=== PATIENT | female | born 1945 | race Asian ===

== ENCOUNTER 2016-11-22 04:08 | Emergency (ER) | payer OTHER ==
[~2016-11-22] VITALS: Ht 149.9 cm; Wt 71.7 kg
[2016-11-22 06:13] LABS: Urine RBC None Seen /hpf (0 - 4)
[2016-11-22 06:33] LABS: Urine Bilirubin Negative (Negative); Urine Blood Negative /uL (Negative); Urine Color Colorless (Yellow); Urine Glucose Normal (Normal); Urine Ketone Negative (Negative); Urine Nitrite Negative (Negative); Urine Urobilinogen Normal (Negative)
[2016-11-22 06:43] LABS: Basophils # (auto) 0 uL; Basophils % (auto) 0.3 % (0.0-2.0); Eosinophils # (auto) 0.1 uL; Eosinophils % (auto) 1.2 % (0.0-7.0); Hematocrit 42.3 % (36.0-46.0); Hemoglobin 13.6 g/dL (12.2-16.2); Lymphocytes # (auto) 2.6 uL; Lymphocytes % (auto) 35.2 % (10.0-50.0); Mean Corpuscular Hemoglobin 28.3 pg (28.0-32.0); Mean Corpuscular Hgb Conc. 32.1 g/dL (32.0-36.0); Mean Corpuscular Volume 88.1 fL (80.0-100.0); Mean Platelet Volume 7.5 fL (7.4-10.4); Monocytes # (auto) 0.4 uL; Monocytes % (auto) 5.6 % (0.0-12.0); Neutrophils # (auto) 4.3 uL; Neutrophils % (auto) 57.7 % (37.0-80.0); Platelet Count (auto) 240 10^3/uL (140-450); Red Cell Distribution Width 15.7 % (11.6-16.0); White Blood Cell 7.4 10^3/uL (4.4-10.8)
[2016-11-22 07:04] LABS: BUN/Creatinine Ratio 25.9; Bilirubin, Total 0.4 mg/dL (0.2-1.0); Calcium 9.1 mg/dL (8.5-10.1); Potassium 3.9 mmol/L (3.5-5.1); Total Protein 7.5 g/dL (6.4-8.2)
[2016-11-22 07:16] LABS: Partial Thromboplastin Time 38.7 sec (22.64-33.71)
[2016-11-22 07:19] LABS: B-Type Natriuretic Peptide 125.93 pg/mL (0-100); Temperature: 21.1 C (20.0-25.0)
[2016-11-22 07:41] LABS: INR 1.17 (0.9-1.15)
[2016-11-22] MEDS ORDERED: DABI150C PO (08:53)
[2016-11-22] MEDS ORDERED: SIMV10TA84 PO (08:53)
[2016-11-22] MEDS ORDERED: LOSA100T27 PO (08:53)
[2016-11-22] MEDS ORDERED: METF-314 PO (08:53)
[2016-11-22] MEDS ORDERED: ALBUTEROL SULF 2.5 MG/0.5ML(0.5%) NEB SOLN NEB ONE (09:30)
[2016-11-22 13:45] VITALS: BP 134/70
== END 2016-11-22 13:45 | disposition home or self-care (01) ==
LOC: ER 04:14
DX: I11.0 Hypertensive heart disease with heart failure (principal); I50.32 Chronic diastolic (congestive) heart failure; I48.2 Chronic atrial fibrillation; E11.65 Type 2 diabetes mellitus with hyperglycemia; D68.59 Other primary thrombophilia; J45.909 Unspecified asthma, uncomplicated; E78.5 Hyperlipidemia, unspecified; Z85.9 Personal history of malignant neoplasm, unspecified
CPT/HCPCS: 36415; 71010; 80053; 81001; 82962; 83880; 84443; 84484; 85025; 85379; 85610; 85730; 93005; 94640

== ENCOUNTER 2018-06-26 11:08 | Emergency (ER) | payer OTHER ==
[~2018-06-26] VITALS: Ht 149.9 cm; Wt 73.0 kg
[~2018-06-26 11:08] MED LIST: DABI150C PO; LOSA-49 PO; METF-371 PO; SIMV10TA84 PO
[2018-06-26] MEDS ORDERED: DILTIAZEM 125mg/125ml BAG KIT 100 ML IV ONE (11:23)
[2018-06-26] MEDS ORDERED: DILTIAZEM HCL 25 MG/5 ML VIAL IV ONE (11:30)
[2018-06-26] MEDS ORDERED: ASPirin 81 mg TAB PO ONE (11:30)
[2018-06-26 12:12] LABS: Basophils # (auto) 0 uL; Basophils % (auto) 0.5 % (0.0-2.0); Eosinophils # (auto) 0.1 uL; Eosinophils % (auto) 2.1 % (0.0-7.0); Hematocrit 44.2 % (36.0-46.0); Hemoglobin 14.9 g/dL (12.2-16.2); Lymphocytes # (auto) 1.5 uL; Lymphocytes % (auto) 32.5 % (10.0-50.0); Mean Corpuscular Hemoglobin 31.1 pg (28.0-32.0); Mean Corpuscular Hgb Conc. 33.7 g/dL (32.0-36.0); Mean Corpuscular Volume 92.5 fL (80.0-100.0); Monocytes # (auto) 0.4 uL; Neutrophils # (auto) 2.6 uL; Neutrophils % (auto) 55.9 % (37.0-80.0); Platelet Count (auto) 235 10^3/uL (140-450); Red Blood Cells 4.78 10^6/uL (4.0-5.20); Red Cell Distribution Width 14.9 % (11.8-14.3); White Blood Cell 4.7 10^3/uL (4.4-10.8)
[2018-06-26 12:25] LABS: INR 0.99 (0.9-1.15); Partial Thromboplastin Time 28.2 sec (23.78-33.04); Prothrombin Time 10.6 sec (9.27-12.13)
[2018-06-26 12:36] LABS: Alanine Aminotransferase 31 U/L (13-56); Albumin 3.4 g/dL (3.4-5.0); Alkaline Phosphatase 84 U/L (45-117); Anion Gap 8 (5-15); Aspartate Aminotransferase 18 U/L (15-37); Bilirubin, Total 0.4 mg/dL (0.2-1.0); Blood Urea Nitrogen 11 mg/dL (7-18); Calcium 8.4 mg/dL (8.5-10.1); Carbon Dioxide 23 mmol/L (21-32); Chloride 106 mmol/L (98-107); GFR African American 132 mL/min; GFR Non-African American 109 mL/min; Glucose 209 mg/dL (74-106); Magnesium 2.3 mg/dL (1.6-2.6); Potassium 3.8 mmol/L (3.5-5.1); Sodium 137 mmol/L (136-145); Total Protein 7.3 g/dL (6.4-8.2)
[2018-06-26 12:39] VITALS: BP 132/59
== END 2018-06-26 14:20 | disposition home or self-care (01) ==
LOC: ER 11:08
DX: I48.2 Chronic atrial fibrillation (principal); J45.909 Unspecified asthma, uncomplicated; E11.9 Type 2 diabetes mellitus without complications; E78.5 Hyperlipidemia, unspecified; I10 Essential (primary) hypertension; Z90.49 Acquired absence of other specified parts of digestive tract; Z98.890 Other specified postprocedural states
CPT/HCPCS: 36415; 71045; 80053; 83735; 83880; 84484; 85025; 85610; 85730; 93005; 94761

== ENCOUNTER 2019-09-17 13:33 | Emergency (ER) | payer OTHER ==
[~2019-09-17] VITALS: Ht 149.9 cm; Wt 76.2 kg
[~2019-09-17 13:33] MED LIST changes: -DABI150C PO; +DABI150C5 PO; +LOSA-39 PO; -LOSA-49 PO
[2019-09-17 14:35] LABS: Basophils # (auto) 0.1 uL; Basophils % (auto) 1.7 % (0.0-2.0); Eosinophils # (auto) 0.1 uL; Eosinophils % (auto) 1.6 % (0.0-7.0); Hemoglobin 15.3 g/dL (12.2-16.2); Lymphocytes # (auto) 2.2 uL; Lymphocytes % (auto) 33.6 % (10.0-50.0); Mean Corpuscular Hemoglobin 31.5 pg (28.0-32.0); Mean Corpuscular Hgb Conc. 34.8 g/dL (32.0-36.0); Mean Corpuscular Volume 90.6 fL (80.0-100.0); Monocytes # (auto) 0.5 uL; Monocytes % (auto) 6.9 % (0.0-12.0); Neutrophils # (auto) 3.7 uL; Neutrophils % (auto) 56.2 % (37.0-80.0); Nucleated Red Blood Cells % 0.1 %; Platelet Count (auto) 221 10^3/uL (140-450); Red Blood Cells 4.85 10^6/uL (4.0-5.20); Red Cell Distribution Width 15.9 % (11.8-14.3); White Blood Cell 6.6 10^3/uL (4.4-10.8)
[2019-09-17 14:56] LABS: Alanine Aminotransferase 43 U/L (13-56); Albumin 3.5 g/dL (3.4-5.0); Anion Gap 7 (5-15); Blood Urea Nitrogen 8 mg/dL (7-18); Calcium 8.7 mg/dL (8.5-10.1); Carbon Dioxide 28 mmol/L (21-32); Chloride 103 mmol/L (98-107); Glucose 97 mg/dL (74-106); Potassium 4.5 mmol/L (3.5-5.1); Sodium 138 mmol/L (136-145)
[2019-09-17 15:01] LABS: Alkaline Phosphatase 96 U/L (45-117); Aspartate Aminotransferase 35 U/L (15-37); BUN/Creatinine Ratio 13.3; Bilirubin, Total 0.3 mg/dL (0.2-1.0); GFR African American 126 mL/min; GFR Non-African American 104 mL/min; Total Protein 7.5 g/dL (6.4-8.2)
[2019-09-17] MEDS ORDERED: FUROSEMIDE 20 MG/2 ML VIAL IV ONE (16:00)
[2019-09-17] MEDS ORDERED: cefTRIAXone 1GM/50ML D5W 50 ML IV ONE (16:00)
[2019-09-17] MEDS ORDERED: AZITHROMYCIN 500MG/ 250ML 250 ML IV ONE (16:00)
[2019-09-17] MEDS ORDERED: diphenhdrAMINE HCL 50 MG/1 ML VL IV ONE (16:45)
[2019-09-17] MEDS ORDERED: ALBUTEROL SULF 2.5 MG/0.5ML(0.5%) NEB SOLN NEB ONE (18:00)
[2019-09-17] MEDS ORDERED: IPRATROPIUM BROM 0.5 MG/2.5ML INH SOL NEB ONE (18:00)
[2019-09-17 18:11] VITALS: BP 129/53
[2019-09-19] MEDS ORDERED: ALBU0.5N2 IN (08:27)
== END 2019-09-17 18:31 | disposition home or self-care (01) ==
LOC: ER 13:33
DX: I11.0 Hypertensive heart disease with heart failure (principal); I50.9 Heart failure, unspecified; J18.9 Pneumonia, unspecified organism; J45.909 Unspecified asthma, uncomplicated; E78.5 Hyperlipidemia, unspecified; I25.2 Old myocardial infarction
CPT/HCPCS: 36415; 71045; 80053; 83880; 84484; 85025; 93005; 94640; 96365; 96368; 96375; 99284; J0456; J0696; J1200; J1940; J7611; J7644

== ENCOUNTER 2024-03-26 11:21 | Observation (INO) | payer OTHER ==
[~2024-03-26] VITALS: Ht 149.9 cm; Wt 65.3 kg
[~2024-03-26 11:21] MED LIST changes: +ALBU0.5N2 IN; -LOSA-39 PO; +LOSA-535 PO; +SIMV10TA20 PO; -SIMV10TA84 PO
[2024-03-26 12:12] VITALS: PULSE 70; RESP 18; O2SAT 96
[2024-03-26 12:17] LABS: Basophils # (auto) 0 10 ^3/uL (0-0.2); Basophils % (auto) 0.4 % (0.0-2.0); Eosinophils # (auto) 0.1 10 ^3/uL (0-0.8); Eosinophils % (auto) 1.2 % (0.0-7.0); Hematocrit 49.3 % (36.0-46.0); Hemoglobin 16.6 g/dL (12.2-16.2); Lymphocytes # (auto) 1.9 10 ^3/uL (0.4-5.4); Lymphocytes % (auto) 26.4 % (10.0-50.0); Mean Corpuscular Hemoglobin 31.4 pg (28.0-32.0); Mean Corpuscular Hgb Conc. 33.6 g/dL (32.0-36.0); Mean Corpuscular Volume 93.3 fL (80.0-100.0); Monocytes # (auto) 0.6 10 ^3/uL (0-1.3); Monocytes % (auto) 9.1 % (0.0-12.0); Neutrophils # (auto) 4.4 10 ^3/uL (1.6-8.6); Neutrophils % (auto) 62.9 % (37.0-80.0); Nucleated Red Blood Cells % 0.1 %; Red Blood Cells 5.28 10^6/uL (4.0-5.20); Red Cell Distribution Width 15.3 % (11.8-14.3)
[2024-03-26 12:32] LABS: INR 1.05 (0.9-1.15); Partial Thromboplastin Time 29.1 SEC (24.5-34.5); Prothrombin Time 11.1 sec (9.3-11.8)
[2024-03-26 12:57] LABS: Alanine Aminotransferase 32 U/L (7-40); Alkaline Phosphatase 70 U/L (46-116); Anion Gap 11 (5-15); Aspartate Aminotransferase 29 U/L (13-40); BUN/Creatinine Ratio 11.9 (10.0-20.0); Blood Urea Nitrogen 7 mg/dL (9-23); Calcium 9.7 mg/dL (8.7-10.4); Carbon Dioxide 26 mmol/L (20-30); Chloride 96 mmol/L (98-107); Glucose 141 mg/dL (74-106); Magnesium 1.7 mg/dL (1.6-2.6); Potassium 3.6 mmol/L (3.5-5.1); Sodium 133 mmol/L (136-145)
[2024-03-26 12:58] LABS: Albumin 4.4 g/dL (3.2-4.8); Bilirubin, Total 0.6 mg/dL (0.2-1.0); Total Protein 7.5 g/dL (5.7-8.2)
[2024-03-26 14:00] LABS: Urine Bacteria None Seen /hpf (None Seen)
[2024-03-26 14:07] LABS: Urine Blood Negative /uL (Negative); Urine Budding Yeast OCCASIONAL /hpf (None Seen); Urine Clarity Clear (Clear); Urine Color Light-Yellow (Yellow); Urine Protein, UAD Negative (Negative); Urine Specific Gravity 1.018 (1.001-1.035); Urine Urobilinogen Normal (Negative); Urine WBC 2 /hpf (0 - 5)
[2024-03-26] MEDS ORDERED: ACETAMINOPHEN 325 MG TAB PO PRN (16:30)
[2024-03-26] MEDS ORDERED: hydrALAZINE HCL 20 MG/ML VL IV PRN (16:45)
[2024-03-26 19:35] VITALS: PULSE 72; RESP 21; O2SAT 94
[2024-03-26] MEDS: APIXABAN 5 MG TAB PO SCH (22:00)
[2024-03-26 22:51] VITALS: BP 169/78; PULSE 71; RESP 18; TEMP 97.9; O2SAT 94
[2024-03-27] VITALS (7 sets, daily range): BP systolic 130–156; BP diastolic 61–93; PULSE 56–66; RESP 16–20; TEMP 36.8; O2SAT 92–99
[2024-03-27] MEDS ORDERED: LATA0.008 EACHEYE (06:29)
[2024-03-27] MEDS ORDERED: DAPA1TAB4 PO (06:29)
[2024-03-27] MEDS ORDERED: AMIO200T13 PO (06:29)
[2024-03-27] MEDS ORDERED: APIX5TAB PO (06:29)
[2024-03-27] MEDS ORDERED: VENL-192 PO (06:29)
[2024-03-27] MEDS ORDERED: PANT40TA2 PO (06:29)
[2024-03-27] MEDS ORDERED: METO-158 PO (06:29)
[2024-03-27] MEDS ORDERED: BUPR-346 PO (06:29)
[2024-03-27] MEDS ORDERED: DORZ2SOL EACHEYE (06:29)
[2024-03-27] MEDS ORDERED: HYDR12.59 PO (06:29)
[2024-03-27 06:55] LABS: Basophils # (auto) 0 10 ^3/uL (0-0.2); Basophils % (auto) 0.4 % (0.0-2.0); Eosinophils # (auto) 0.1 10 ^3/uL (0-0.8); Hematocrit 47.3 % (36.0-46.0); Hemoglobin 15.7 g/dL (12.2-16.2); Lymphocytes # (auto) 2.4 10 ^3/uL (0.4-5.4); Lymphocytes % (auto) 40.3 % (10.0-50.0); Mean Corpuscular Hemoglobin 31.1 pg (28.0-32.0); Mean Corpuscular Hgb Conc. 33.2 g/dL (32.0-36.0); Mean Corpuscular Volume 93.7 fL (80.0-100.0); Monocytes # (auto) 0.5 10 ^3/uL (0-1.3); Monocytes % (auto) 9.1 % (0.0-12.0); Neutrophils # (auto) 2.8 10 ^3/uL (1.6-8.6); Neutrophils % (auto) 48.2 % (37.0-80.0); Nucleated Red Blood Cells % 0.2 %; Red Blood Cells 5.05 10^6/uL (4.0-5.20); Red Cell Distribution Width 15.1 % (11.8-14.3); White Blood Cell 5.9 10^3/uL (4.4-10.8)
[2024-03-27 07:13] LABS: Alanine Aminotransferase 28 U/L (7-40); Albumin 4.1 g/dL (3.2-4.8); Alkaline Phosphatase 68 U/L (46-116); Anion Gap 11 (5-15); Aspartate Aminotransferase 24 U/L (13-40); BUN/Creatinine Ratio 12.7 (10.0-20.0); Bilirubin, Total 0.4 mg/dL (0.2-1.0); Blood Urea Nitrogen 8 mg/dL (9-23); Calcium 9.5 mg/dL (8.5-10.1); Carbon Dioxide 27 mmol/L (20-30); Chloride 100 mmol/L (98-107); Cholesterol 142 mg/dL (< 200); Glucose 175 mg/dL (74-106); HDL Cholesterol 41 mg/dL (40-59); LDL Cholesterol 84 mg/dL (< 100); Potassium 2.8 mmol/L (3.5-5.1); Sodium 138 mmol/L (136-145); Total Protein 6.7 g/dL (5.7-8.2); Triglycerides 195 mg/dL (< 150)
[2024-03-27] MEDS: LOSARTAN POTASSIUM 50 MG TAB PO SCH (09:32)
[2024-03-27] MEDS ORDERED: LOSA-534 PO (16:28)
[2024-03-27] MEDS ORDERED: ATOR40TA52 PO (16:28)
== END 2024-03-27 18:30 | disposition home or self-care (01) ==
LOC: ER 11:21 → TELE 16:29 → TELE-WESTW 22:36
PROVIDERS: ADMIT Student in an Organized Health Care Education/Training Program; ATTEND Student in an Organized Health Care Education/Training Program
DX: G45.9 Transient cerebral ischemic attack, unspecified (principal); I48.20 Chronic atrial fibrillation, unspecified; I16.0 Hypertensive urgency; D68.59 Other primary thrombophilia; E78.5 Hyperlipidemia, unspecified; I11.0 Hypertensive heart disease with heart failure; I50.9 Heart failure, unspecified; E11.319 Type 2 diabetes mellitus with unspecified diabetic retinopathy without macular edema; J45.909 Unspecified asthma, uncomplicated; Z88.5 Allergy status to narcotic agent; Z88.8 Allergy status to other drugs, medicaments and biological substances
CPT/HCPCS: 36415; 70450; 70545; 70547; 70551; 71045; 80053; 80061; 81001; 83036; 83735; 83880; 84484; 85025; 85610; 85730; 93005; 93306; 99285; G0378

== ENCOUNTER 2024-05-04 08:46 | Observation (INO) | payer OTHER ==
[~2024-05-04] VITALS: Ht 149.9 cm; Wt 69.6 kg
[~2024-05-04 08:46] MED LIST changes: -ALBU0.5N2 IN; +APIX5TAB PO; +ATOR40TA52 PO; -DABI150C5 PO; +LOSA-534 PO; -LOSA-535 PO; -METF-371 PO; +METO-158 PO; -SIMV10TA20 PO; +VENL-192 PO
[2024-05-04 09:25] LABS: Basophils # (auto) 0 10 ^3/uL (0-0.2); Basophils % (auto) 0.2 % (0.0-2.0); Eosinophils # (auto) 0.1 10 ^3/uL (0-0.8); Eosinophils % (auto) 1.2 % (0.0-7.0); Hemoglobin 16.6 g/dL (12.2-16.2); Lymphocytes # (auto) 2.2 10 ^3/uL (0.4-5.4); Lymphocytes % (auto) 27.9 % (10.0-50.0); Mean Corpuscular Hemoglobin 31.5 pg (28.0-32.0); Mean Corpuscular Hgb Conc. 33.9 g/dL (32.0-36.0); Mean Corpuscular Volume 93.1 fL (80.0-100.0); Monocytes # (auto) 0.6 10 ^3/uL (0-1.3); Monocytes % (auto) 8.4 % (0.0-12.0); Neutrophils # (auto) 4.8 10 ^3/uL (1.6-8.6); Neutrophils % (auto) 62.3 % (37.0-80.0); Red Blood Cells 5.27 10^6/uL (4.0-5.20); Red Cell Distribution Width 14.6 % (11.8-14.3); White Blood Cell 7.8 10^3/uL (4.4-10.8)
[2024-05-04 09:46] LABS: Alanine Aminotransferase 44 U/L (7-40); Albumin 4.5 g/dL (3.2-4.8); Alkaline Phosphatase 75 U/L (46-116); Anion Gap 7 (5-15); Aspartate Aminotransferase 26 U/L (13-40); BUN/Creatinine Ratio 29.4 (10.0-20.0); Blood Urea Nitrogen 20 mg/dL (9-23); Calcium 9.3 mg/dL (8.5-10.1); Carbon Dioxide 23 mmol/L (20-30); Chloride 110 mmol/L (98-107); Glucose 93 mg/dL (74-106); Potassium 3.8 mmol/L (3.5-5.1); Sodium 140 mmol/L (136-145)
[2024-05-04 09:47] LABS: Bilirubin, Total 0.4 mg/dL (0.2-1.0); Total Protein 7.1 g/dL (5.7-8.2)
[2024-05-04 11:28] LABS: Urine Bacteria None Seen /hpf (None Seen)
[2024-05-04 11:42] LABS: Urine Blood Negative /uL (Negative); Urine Budding Yeast OCCASIONAL /hpf (None Seen); Urine Clarity Turbid (Clear); Urine Color Yellow (Yellow); Urine Hyaline Cast FEW /lpf (0 - 2); Urine Mucus FEW (None Seen); Urine Protein, UAD 1+ (Negative); Urine Specific Gravity 1.035 (1.001-1.035); Urine Urobilinogen Normal (Negative); Urine WBC 18 /hpf (0 - 5)
[2024-05-04] MEDS ORDERED: MORPHINE SULFATE INJ 2 MG/ml SYRG IV PRN (15:30)
[2024-05-04] MEDS ORDERED: NITROGLYCERIN 0.4 MG SL TAB SL PRN (15:30)
[2024-05-04 15:45] VITALS: PULSE 88; RESP 16; O2SAT 96
[2024-05-04 17:00] VITALS: BP 121/45; PULSE 55; RESP 18; TEMP 97.6; O2SAT 98
[2024-05-04] MEDS: cefTRIAXone 1GM/50ML D5W 50 ML IV ONE (19:45)
[2024-05-04 21:00] VITALS: BP_SYST 105; BP_SYST 106; BP_DIAS 41; BP_DIAS 51; PULSE 55; PULSE 96; RESP 17; RESP 19; TEMP 97.9; TEMP 98.8; O2SAT 94; O2SAT 97
[2024-05-05] VITALS (8 sets, daily range): BP systolic 108–142; BP diastolic 46–77; PULSE 45–100; RESP 15–20; TEMP 97–97.8; O2SAT 95–99
[2024-05-05] MEDS ORDERED: LORazepam 0.5 MG TAB PO PRN (00:15)
[2024-05-05] MEDS: APIXABAN 5 MG TAB PO SCH (00:31)
[2024-05-05] MEDS ORDERED: VENL1TAB99 PO (04:39)
[2024-05-05] MEDS ORDERED: PANT40TA2 PO (04:39)
[2024-05-05] MEDS ORDERED: AMIO200T33 PO (04:39)
[2024-05-05] MEDS ORDERED: DAPA1TAB4 PO (04:39)
[2024-05-05] MEDS ORDERED: METF-371 PO (04:39)
[2024-05-05] MEDS ORDERED: LATA0.008 EACHEYE (04:39)
[2024-05-05] MEDS ORDERED: SEMA2INJ3 SC (04:39)
[2024-05-05] MEDS ORDERED: LOSA-534 PO (04:39)
[2024-05-05] MEDS ORDERED: BUPR-346 PO (04:39)
[2024-05-05] MEDS ORDERED: HYDR12.59 PO (04:39)
[2024-05-05] MEDS ORDERED: ATOR10TA PO (04:39)
[2024-05-05] MEDS ORDERED: GADOTERATE MEG 10 MMOL/20ml INJ (0.5MMOL/ml) IV ONE (07:31)
[2024-05-05] MEDS: LOSARTAN POTASSIUM 50 MG TAB PO SCH (10:09)
[2024-05-05] MEDS: ATORVASTATIN 20 MG TAB PO SCH (10:10)
[2024-05-05] MEDS: VENLAFAXINE HCL 37.5mg XR cap PO SCH (10:10)
[2024-05-05] MEDS ORDERED: ASPI-543 PO (12:08)
[2024-05-05] MEDS ORDERED: DEXTROSE (50%) 50ML SYRG IV PRN (17:30)
[2024-05-05] MEDS: LATANOPROST 0.005 % OPTH(EYE) SOL 2.5ML EACHEYE SCH (22:00)
[2024-05-05] MEDS: ACCU-CHEK COMFORT CURVE STRIP VI SCH (22:15)
[2024-05-05] MEDS: InsuLIN REG 1unit/0.01ml Soln (100units/ml) SC SCH (22:16)
[2024-05-06 05:00] VITALS: BP 123/68; PULSE 67; RESP 18; TEMP 97.7; O2SAT 97
[2024-05-06 06:30] LABS: Basophils # (auto) 0 10 ^3/uL (0-0.2); Basophils % (auto) 0.3 % (0.0-2.0); Eosinophils # (auto) 0.1 10 ^3/uL (0-0.8); Eosinophils % (auto) 1.5 % (0.0-7.0); Hemoglobin 16.1 g/dL (12.2-16.2); Lymphocytes # (auto) 2.4 10 ^3/uL (0.4-5.4); Lymphocytes % (auto) 49.6 % (10.0-50.0); Mean Corpuscular Hemoglobin 31.9 pg (28.0-32.0); Mean Corpuscular Hgb Conc. 34.2 g/dL (32.0-36.0); Mean Corpuscular Volume 93.3 fL (80.0-100.0); Monocytes # (auto) 0.4 10 ^3/uL (0-1.3); Monocytes % (auto) 8.6 % (0.0-12.0); Neutrophils # (auto) 1.9 10 ^3/uL (1.6-8.6); Nucleated Red Blood Cells % 0.1 %; Red Blood Cells 5.04 10^6/uL (4.0-5.20); Red Cell Distribution Width 14.8 % (11.8-14.3); White Blood Cell 4.9 10^3/uL (4.4-10.8)
[2024-05-06 07:08] LABS: Alanine Aminotransferase 37 U/L (7-40); Albumin 3.8 g/dL (3.2-4.8); Alkaline Phosphatase 58 U/L (46-116); Anion Gap 7 (5-15); Aspartate Aminotransferase 26 U/L (13-40); BUN/Creatinine Ratio 19.1 (10.0-20.0); Blood Urea Nitrogen 9 mg/dL (9-23); Carbon Dioxide 25 mmol/L (20-30); Chloride 108 mmol/L (98-107); Glucose 111 mg/dL (74-106); Potassium 3.2 mmol/L (3.5-5.1); Sodium 140 mmol/L (136-145)
[2024-05-06 07:09] LABS: Bilirubin, Total 0.5 mg/dL (0.2-1.0); Total Protein 6.1 g/dL (5.7-8.2)
[2024-05-06 09:00] VITALS: BP 152/97; PULSE 88; RESP 16; TEMP 97.9; O2SAT 97
[2024-05-06] MEDS: hydroCHLOROthiazide 25 MG TAB PO SCH (09:43)
[2024-05-06] MEDS: buPROPion HCL 100 MG TAB PO SCH (09:44)
[2024-05-06] MEDS: AMIODARONE HCL 200 MG TAB PO SCH (09:44)
[2024-05-06] MEDS: PANTOPRAZOLE 40 MG TAB PO SCH (09:44)
[2024-05-06] MEDS: VENLAFAXINE HCL 37.5mg XR cap PO SCH (09:53)
[2024-05-06 13:00] VITALS: BP 128/70; PULSE 69; RESP 16; TEMP 97.8; O2SAT 99
[2024-05-06 13:23] VITALS: BP 152/91; TEMP 36.6
[2024-05-06] MEDS ORDERED: ATORVASTATIN 20 MG TAB PO SCH (18:00)
== END 2024-05-06 14:55 | disposition home or self-care (01) ==
LOC: ER 08:46 → OVERFLOW 15:22 → EAST 16:31
PROVIDERS: ADMIT Student in an Organized Health Care Education/Training Program; ATTEND Student in an Organized Health Care Education/Training Program
DX: R20.0 Anesthesia of skin (principal); R29.810 Facial weakness; I48.91 Unspecified atrial fibrillation; J45.909 Unspecified asthma, uncomplicated; I11.0 Hypertensive heart disease with heart failure; I50.9 Heart failure, unspecified; E11.9 Type 2 diabetes mellitus without complications; G95.89 Other specified diseases of spinal cord; M25.78 Osteophyte, vertebrae; N39.0 Urinary tract infection, site not specified; I25.2 Old myocardial infarction; Z79.899 Other long term (current) drug therapy; Z85.3 Personal history of malignant neoplasm of breast; Z90.13 Acquired absence of bilateral breasts and nipples; Z79.01 Long term (current) use of anticoagulants
CPT/HCPCS: 36415; 70450; 70551; 70553; 72142; 72147; 80053; 81001; 82962; 85025; 93005; 96365; 96372; 99284; A9575; G0378; J0696; J1815; J7030

== ENCOUNTER 2025-01-12 22:32 | Inpatient (IN) | payer OTHER ==
[~2025-01-12] VITALS: Ht 142.2 cm; Wt 73.1 kg
[~2025-01-12 22:32] MED LIST changes: +AMIO200T33 PO; +ASPI-543 PO; +BUPR-346 PO; +DAPA1TAB4 PO; +HYDR12.59 PO; +LATA0.008 EACHEYE; +METF-371 PO; +PANT40TA2 PO; +SEMA2INJ3 SC; -VENL-192 PO; +VENL1TAB99 PO
--- NOTE | 2025-01-12 23:01 | ED.PDOC ---
HPI Comments 79 year old female came to ER due to chest pains. Patient has history of hypertension, diabetes, dyslipidemia, chf and Afib. States few hours ago, she has been having substernal chest pains, pressure, radiating to the back, associated with dizziness, shortness of breath, nausea and multiple episodes of vomiting and diarrhea. Blood pressure upon arrival was 103/56 mmHg. Chief Complaint: Chest Pain Time Seen by MD: 23:00 Primary Care Provider: Unknown Reviewed Notes: Nurses Notes Allergies: Coded Allergies: Iodine (Verified Allergy, Severe, 09/17/19) Azithromycin (Verified Allergy, Mild, 09/17/19) ITCHING Metoprolol (Verified Allergy, Mild, 11/22/16) PATIENT REPORTS THAT SHE IS ALLERGIC TO IV METOPROLOL. CAUSES ITCHING. BUT IS ABLE TO TOLERATE PO METOPROLOL WITH NO ADVERSE REACTIONS. Morphine (Verified Allergy, Unknown, 09/17/19) Neomycin (Verified Allergy, Unknown, 09/17/19) Home Meds Active Scripts Atorvastatin Calcium (ATORVASTATIN CALCIUM) 40 Mg Tab, 40 MG PO DAILY for 30 Days, #30 TAB 0 Refills Prov:MIKE HOLM DO 03/27/24 Losartan Potassium (Losartan Potassium) 50 Mg Tab, 50 MG PO DAILY for 30 Days, #30 TAB 0 Refills Prov:MIKE HOLM DO 03/27/24 Reported Medications Aspirin (Aspir-Low) 81 Mg Tab, 81 MG PO DAILY for 30 Days, MG 05/05/24 Semaglutide (Ozempic) 2 Mg/3 Ml Inj, 0.5 MG SC QWEEKLY, INJ 05/05/24 Latanoprost (LATANOPROST) 0.005 % Cathy, 1 DROP EACHEYE BID, #2.5 ML 6 Refills 05/05/24 Venlafaxine Hydrochloride (Venlafaxine Hcl) 75 Mg Tab, 75 MG PO DAILY, TAB 05/05/24 Dapagliflozin Propanediol (Farxiga) 10 Mg Tab, 10 MG PO DAILY, TAB 05/05/24 Bupropion Hcl (Bupropion Hcl) 100 Mg Tab, 100 MG PO DAILY for 30 Days, MG 05/05/24 Amiodarone Hcl (Amiodarone Hcl) 200 Mg Tab, 200 MG PO DAILY for 30 Days 05/05/24 Metformin Hydrochloride (Metformin Hcl) 850 Mg Tab, 850 MG PO BID for 30 Days, MG 05/05/24 Pantoprazole Sodium Sesquihydr (Protonix) 40 Mg Tab, 40 MG PO DAILY, #30 TAB 05/05/24 Hydrochlorothiazide (Hydrochlorothiazide) 12.5 Mg Cap, 12.5 MG PO DAILY for 30 Days, MG 05/05/24 Metoprolol Tartrate (Metoprolol Tartrate) 50 Mg Tab, 50 MG PO BID for 30 Days, MG 03/27/24 Apixaban Base (ELIQUIS) 5 Mg Tab, 5 MG PO BID, TAB 03/27/24 Information Source: Patient Mode of Arrival: Ambulatory Severity: Moderate Timing: Hours Duration: Since onset Prehospital treatment: None Location: Substernal Radiation: Back Quality: Pressure Onset: With Light Exertion Cardiac Risk Factors: HTN, Diabetes History of: Similar pain in past Associated Signs and Symptoms: SOB, Diaphoresis, Abdominal Pain, N/V, Back Pain Past Medical History PAST MEDICAL HISTORY: AFIB, Asthma, Cancer, CHF, DM, High Lipids, HTN, NM Surgical History: Cholecystectomy, INSURANCE COMPLIANCE ANALYST History: No Pertinent INSURANCE COMPLIANCE ANALYST History Family History Family History: No family hx of HTN, Family hx of Cancer Social History Smoker: Non-Smoker Alcohol: Denies ETOH Use Drugs: Denies Drug Use Lives In: Home Constitutional: denies: chills, diaphoresis, fatigue, fever, malaise, sweats, weakness, others EENTM: denies: blurred vision, double vision, ear bleeding, ear discharge, ear drainage, ear pain, ear ringing, eye pain, eye redness, hearing loss, mouth pain, mouth swelling, nasal discharge, nose bleeding, nose congestion, nose pain, photophobia, tearing, throat pain, throat swelling, voice changes, others Respiratory: reports: SOB at rest, shortness of breath; denies: cough, hemoptysis, orthopnea, SOB with excertion, stridor, wheezing, others Cardiovascular: reports: chest pain, dizzy spells; denies: diaphoresis, Dyspnea on exertion, edema, irregular heart beat, left arm pain, lightheadedness, palpi tations, PND, syncope, others Gastrointestinal: reports: diarrhea, nausea, vomiting; denies: abdomen distended, abdominal pain, blood streaked bowels, constipated, dysphagia, difficulty swallowing, hematemesis, melena, poor appetite, poor fluid intake, rectal bleeding, rectal pain, others Genitourinary: denies: abnormal vagina bleeding, burning, dyspareunia, dysuria, flank pain, frequency, hematuria, incontinence, pain, , vagina discharge, urgency, others Neurological: denies: dizziness, fainting, headache, left sided numbness, left sided weakness, numbness, paresthesia, pre-existing deficit, right sided numbness, right sided weakness, seizure, speech problems, tingling, tremors, weakness, others Musculoskeletal: reports: back pain; denies: gout, joint pain, joint swelling, muscle pain, muscle stiffness, neck pain, others Integumetry: denies: bruises, change in color, change in hair/nails, dryness, laceration, lesions, lumps, rash, wounds, others Allergic/Immunocompromised: denies: Difficulty Healing, Frequent Infections, Hives, Itching, others Hematologic/Lymphatic: denies: anemia, blood clots, easy bleeding, easy bruising, swollen glands, others Endocrine: denies: excessive hunger, excessive sweating, excessive thirst, excessive urination, flushing, intolerance to cold, intolerance to heat, unexplained weight gain, unexplained weight loss, others Psychiatric: denies: anxiety, bipolar disorder, depression, hopeless, panic disorder, schizophrenia, sleepless, suicidal, others Physical Exam General Appearance: No Apparent Distress, Normal HEENT: Normal ENT Inspection, Pharynx Normal, TMs Normal Neck: Full Range of Motion, Non-Tender, Normal, Normal Inspection Respiratory: Chest Non-Tender, Lungs Clear, No Accessory Muscle Use, No Respiratory Distress, Normal Breath Sounds Cardiovascular: No Edema, No JVD, No Murmur, No Gallop, Normal Peripheral Pulses, Regular Rate/Rhythm Breast Exam: Deferred Gastrointestinal: No Organomegaly, Non Tender, No Pulsatile Mass, Normal Bowel Sounds, Soft Genitalia: Deferred Pelvic: Deferred Rectal: Deferred Extremities: No calf tenderness, Normal capillary refill, Normal inspection, Normal range of motion, Non-tender, No pedal edema Musculoskeletal : Apperance: Normal Neurologic: Alert, chief digital media officer II-XII nml as Tested, No Motor Deficits, Normal Affect, Normal Mood, No Sensory Deficits Cerebellar Function: Normal Reflexes: Normal Skin: Dry, Normal Color, Warm Lymphatic: No Adenopathy Was a procedure done? Was a procedure done?: No CP Differential Dx Differential Diagnosis: A-fib, Angina, Anxiety / Panic Attack Differential Diagnosis: Angina, Chest Wall Pain, Costochondritis, Esophageal reflux/spasm, Gastritis, Myocardial Infarction, Pneumonia X-Ray, Labs, Meds, VS Vital Signs Date Time Temp Pulse Resp B/P (MAP) Pulse Ox O2 Delivery O2 Flow Rate FiO2 01/13/25 01:42 85 01/13/25 01:08 97.8 01/13/25 00:11 85 25 91 Room Air* 0 21 01/13/25 00:11 97.8 85 25 102/48 (66) 91 97.8 01/13/25 00:08 97.8 01/12/25 23:43 83 01/12/25 22:54 97.6 85 18 103/56 (72) 98 97.6 01/12/25 22:38 85 Lab Test 01/13/25 03:30 01/13/25 01:20 01/12/25 23:27 01/12/25 22:40 Range/Units Lactic Acid Level 1.5 4.4 *H 0.4-2.0 mmol/L Troponin I High Sensitivity 6 5 </=34 ng/L White Blood Count 12.7 H 4.4-10.8 10^3/uL Red Blood Count 5.61 H 4.0-5.20 10^6/uL Hemoglobin 17.5 H 12.2-16.2 g/dL Hematocrit 52.7 H 36.0-46.0 % Mean Corpuscular Volume 93.9 80.0-100.0 fL Mean Corpuscular Hemoglobin 31.3 28.0-32.0 pg Mean Corpuscular Hemoglobin Concent 33.3 32.0-36.0 g/dL Red Cell Distribution Width 15.9 H 11.8-14.3 % Platelet Count 205 140-450 10^3/uL Mean Platelet Volume 7.8 6.9-10.8 fL Neutrophils (%) (Auto) 89.1 H 37.0-80.0 % Lymphocytes (%) (Auto) 7.0 L 10.0-50.0 % Monocytes (%) (Auto) 3.4 0.0-12.0 % Eosinophils (%) (Auto) 0.3 0.0-7.0 % Basophils (%) (Auto) 0.2 0.0-2.0 % Neutrophils # (Auto) 11.4 H 1.6-8.6 10 ^3/uL Lymphocytes # (Auto) 0.9 0.4-5.4 10 ^3/uL Monocytes # (Auto) 0.4 0-1.3 10 ^3/uL Eosinophils # (Auto) 0 0-0.8 10 ^3/uL Basophils # (Auto) 0 0-0.2 10 ^3/uL Nucleated Red Blood Cells 0.0 % Sodium Level 133 L 136-145 mmol/L Potassium Level 4.6 3.5-5.1 mmol/L Chloride Level 100 98-107 mmol/L Carbon Dioxide Level 19 L 20-31 mmol/L Anion Gap 14 5-15 Blood Urea Nitrogen 17 9-23 mg/dL Creatinine 1.18 H 0.550-1.02 mg/dL Glomerular Filtration Rate Calc 48 >90 mL/min BUN/Creatinine Ratio 14.4 10.0-20.0 Serum Glucose 267 H 74-106 mg/dL Calcium Level 10.3 8.7-10.4 mg/dL Current Medications Medications (Trade) Dose Ordered Sig/Cullen Route Start Time Stop Time Status Last Admin Sodium Chloride 1,000 ml @ 1,000 mls/hr Q1H ONCE IV 01/12/25 23:00 01/12/25 23:59 DC 01/13/25 00:07 Acetaminophen (Tylenol Tablet) 650 mg ONCE ONCE PO 01/12/25 23:00 01/12/25 23:01 DC 01/13/25 00:08 Ondansetron HCl (Zofran) 4 mg ONCE ONCE IV 01/13/25 00:45 01/13/25 00:46 DC 01/13/25 00:58 Famotidine (Pepcid Injection) 20 mg ONCE ONCE IV 01/13/25 00:45 01/13/25 00:46 DC 01/13/25 00:57 Loperamide HCl (Imodium Capsule) 4 mg ONCE ONCE PO 01/13/25 01:30 01/13/25 01:31 DC 01/13/25 01:30 Sodium Chloride 2,000 ml @ 1,000 mls/hr Q2H ONCE IV 01/13/25 02:30 01/13/25 04:29 DC 01/13/25 02:30 Piperacillin Sod/ Tazobactam Sod 100 ml @ 100 mls/hr ONCE ONCE IV 01/13/25 02:30 01/13/25 03:29 DC 01/13/25 03:07 CHEST RADIOGRAPH Indication: chest pain Technique: Single frontal view of the chest was obtained COMPARISON: XY CHEST XRAY 1 VIEW on DOS: 03/26/24, CHEST PORTABLE on DOS: 09/17/19 FINDINGS: Lines and Tubes: None Lungs: Clear Pleura: No effusion. No pneumothorax. Cardiomediastinal contours: Unremarkable. Atherosclerotic vascular calcifications noted. Bones: Unremarkable IMPRESSION: 1. No acute disease. Exam: CT CT AB PEL WO CON-NO ORAL OR IV History: abdominal pain Comparison Study: None available at time of dictation. Technique: Multidetector spiral CT of the abdomen was performed from lung bases to iliac crest. Imaging was performed without IV contrast. Axial, coronal and sagittal multiplanar reformats were obtained from the axial data set by the technologist. Radiation Dose : CT Dose: CTDI volume is 16.44 mGy. Dose-length product is 948.55 mGy*cm Findings: Evaluation of solid organs is limited due to lack of intravenous contrast use. Lung Bases: Several pulmonary nodules, for example: * 0.5 cm pleural-based posterolateral right lower lobe (3:4); * 0.5 cm posteromedial right lower lobe (3:23); * 1.2 cm pleural-based lateral right lower lobe (3:29) Normal heart size. No pleural or pericardial effusion. Liver: The liver is enlarged with diffuse hepatic steatosis. No focal lesions. Gallbladder and Biliary Tree: The gallbladder is surgically absent. There is no evidence of intrahepatic biliary ductal dilatation. Spleen: Unremarkable Pancreas: The pancreas is grossly normal in appearance. Adrenal Glands: Unremarkable Kidneys: Kidneys are grossly normal without calculi or hydronephrosis. Visualized Bowel: The stomach is grossly normal in appearance. Minimally distended fluid-filled segments of small bowel throughout the abdomen without evidence of bowel obstruction. The appendix is normal in appearance. Ascites: Absent Lymphadenopathy: No mesenteric, retroperitoneal or periportal lymphadenopathy. Abdominal Wall and Mesentery: Unremarkable. Vasculature: The visualized abdominal aorta is normal in size and caliber. Atherosclerotic vascular calcifications are present within the coronary arterial vasculature, aorta and major branching vessels. Evaluation of abdominal and pelvic vessels is limited due to lack of intravenous contrast. Musculoskeletal: No aggressive focal bony lesions, acute fractures or dislocation. Multilevel degenerative change of the thoracic and lumbar spine includes diffuse idiopathic skeletal hyperostosis as well as severe disc height loss with adjacent endplate sclerosis and corresponding anterior osteophytosis at all levels within the lumbar spine. IMPRESSION: 1. No acute abdominal finding.Hepatomegaly 2. And hepatic steatosis. 3. Several right lower lobe pulmonary nodules of uncertain etiology and/or significance. Recommend comparison with prior exams if available and follow-up evaluation. Time of 1ST Reevaluation: 22:55 Reevaluation 1ST: Unchanged Patient Education/Counseling: Diagnosis, Treatment Family Education/Counseling: No Family Present Critical Care Note Critical Care Time?: Yes (35 min-critical care time only) Critical care comment: acute chest pains Stability Stability form required: No Heart Score Heart Score: Heart Score Response (Comments) Value History Moderate Suspicious 1 EKG Repolarization Disturb 1 Age >65 2 Risk Factors >3 or Hx ASHD 2 Troponin Normal limit 0 Total 6 I personally scribed for PASQUALE SOW MD ([facility]) on 01/12/25 at 23:00. Electronically submitted by Ney Torrez ([employer]). I personally scribed for PASQUALE SOW MD ([facility] on 01/13/25 at 00:46. Electronically submitted by Ney Torrez ([employer]). I personally scribed for PASQUALE SOW MD ([facility]) on 01/13/25 at 05:09. Electronically submitted by Ney Torrez ([facility] PASQUALE SOW MD Jan 12, 2025 23:00
[2025-01-12 23:09] LABS: Basophils # (auto) 0 10 ^3/uL (0-0.2); Eosinophils # (auto) 0 10 ^3/uL (0-0.8); Hemoglobin 17.5 g/dL (12.2-16.2)
[2025-01-12 23:11] LABS: Basophils % (auto) 0.2 % (0.0-2.0); Eosinophils % (auto) 0.3 % (0.0-7.0); Hematocrit 52.7 % (36.0-46.0); Lymphocytes # (auto) 0.9 10 ^3/uL (0.4-5.4); Mean Corpuscular Hemoglobin 31.3 pg (28.0-32.0); Mean Corpuscular Hgb Conc. 33.3 g/dL (32.0-36.0); Mean Corpuscular Volume 93.9 fL (80.0-100.0); Monocytes # (auto) 0.4 10 ^3/uL (0-1.3); Monocytes % (auto) 3.4 % (0.0-12.0); Neutrophils # (auto) 11.4 10 ^3/uL (1.6-8.6); Neutrophils % (auto) 89.1 % (37.0-80.0); Platelet Count (auto) 205 10^3/uL (140-450); Red Blood Cells 5.61 10^6/uL (4.0-5.20); Red Cell Distribution Width 15.9 % (11.8-14.3); White Blood Cell 12.7 10^3/uL (4.4-10.8)
--- NOTE | 2025-01-12 23:14 | ECG ---
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
[2025-01-12 23:15] LABS: Chloride 100 mmol/L (98-107); Potassium 4.6 mmol/L (3.5-5.1)
[2025-01-12 23:16] LABS: Anion Gap 14 (5-15)
[2025-01-12 23:17] LABS: Calcium 10.3 mg/dL (8.7-10.4)
[2025-01-12 23:19] LABS: Carbon Dioxide 19 mmol/L (20-31); Sodium 133 mmol/L (136-145)
[2025-01-12 23:21] LABS: BUN/Creatinine Ratio 14.4 (10.0-20.0); Blood Urea Nitrogen 17 mg/dL (9-23)
[2025-01-12 23:22] LABS: Glucose 267 mg/dL (74-106)
--- NOTE | 2025-01-12 23:26 | DVH ---
CHEST RADIOGRAPH Indication: chest pain Technique: Single frontal view of the chest was obtained COMPARISON: XY CHEST XRAY 1 VIEW on DOS: 03/26/24, CHEST PORTABLE on DOS: 09/17/19 FINDINGS: Lines and Tubes: None Lungs: Clear Pleura: No effusion. No pneumothorax. Cardiomediastinal contours: Unremarkable. Atherosclerotic vascular calcifications noted. Bones: Unremarkable IMPRESSION: 1. No acute disease.
[2025-01-13] MEDS: SODIUM CHLORIDE 0.9% 1,000 ML IV ONE (00:07)
[2025-01-13] MEDS: ACETAMINOPHEN 325 MG TAB PO ONE ×2 (00:08→13:31)
[2025-01-13 00:11] VITALS: PULSE 85; RESP 25; O2SAT 91
[2025-01-13] MEDS: FAMOTIDINE (10MG/ML) 2ML VL IV ONE (00:57)
[2025-01-13] MEDS: ONDANSETRON HCL 4 MG/2 ML VIAL IV ONE (00:58)
[2025-01-13] MEDS: LOPERAMIDE HCL 2 MG CAP/TAB PO ONE (01:30)
[2025-01-13 02:21] LABS: Lactic Acid w/Reflex 4.4 mmol/L (0.4-2.0)
[2025-01-13] MEDS ORDERED: VANCOMYCIN PER PHARMACY 0 MG IV SCH ×3 (02:30→18:45)
[2025-01-13] MEDS: SODIUM CHLORIDE 0.9% 2,000 ML IV ONE (02:30)
[2025-01-13] MEDS: PIPERACILLIN-TAZO 4.5GM 100 ML IV ONE (03:07)
--- NOTE | 2025-01-13 03:13 | DVH ---
Exam: CT CT AB PEL WO CON-NO ORAL OR IV History: abdominal pain Comparison Study: None available at time of dictation. Technique: Multidetector spiral CT of the abdomen was performed from lung bases to iliac crest. Imagi ng was performed without IV contrast. Axial, coronal and sagittal multiplanar reformats were obtained from the axial data set by the technologist. Radiation Dose : CT Dose: CTDI volume is 16.44 mGy. Dose-length product is 948.55 mGy*cm Findings: Evaluation of solid organs is limited due to lack of intravenous contrast use. Lung Bases: Several pulmonary nodules, for example: * 0.5 cm pleural-based posterolateral right lower lobe (3:4); * 0.5 cm posteromedial right lower lobe (3:23); * 1.2 cm pleural-based lateral right lower lobe (3:29) Normal heart size. No pleural or pericardial effusion. Liver: The liver is enlarged with diffuse hepatic steatosis. No focal lesions. Gallbladder and Biliary Tree: The gallbladder is surgically absent. There is no evidence of intrahep atic biliary ductal dilatation. Spleen: Unremarkable Pancreas: The pancreas is grossly normal in appearance. Adrenal Glands: Unremarkable Kidneys: Kidneys are grossly normal without calculi or hydronephrosis. Visualized Bowel: The stomach is grossly normal in appearance. Minimally distended fluid-filled segme nts of small bowel throughout the abdomen without evidence of bowel obstruction. The appendix is norm al in appearance. Ascites: Absent Lymphadenopathy: No mesenteric, retroperitoneal or periportal lymphadenopathy. Abdominal Wall and Mesentery: Unremarkable. Vasculature: The visualized abdominal aorta is normal in size and caliber. Atherosclerotic vascular c alcifications are present within the coronary arterial vasculature, aorta and major branching vessels . Evaluation of abdominal and pelvic vessels is limited due to lack of intravenous contrast. Musculoskeletal: No aggressive focal bony lesions, acute fractures or dislocation. Multilevel degener ative change of the thoracic and lumbar spine includes diffuse idiopathic skeletal hyperostosis as we ll as severe disc height loss with adjacent endplate sclerosis and corresponding anterior osteophytos is at all levels within the lumbar spine. IMPRESSION: 1. No acute abdominal finding.Hepatomegaly 2. And hepatic steatosis. 3. Several right lower lobe pulmonary nodules of uncertain etiology and/or significance. Recommend c omparison with prior exams if available and follow-up evaluation. Radiation optimization: All CT scans at this facility use at least one of these dose optimization geoff hniques: automated exposure control mA and/or kV adjustment per patient size (includes targeted exam s where dose is matched to clinical indication) or iterative reconstruction.
[2025-01-13] MEDS: VANCOMYCIN 1GM/250ML KIT 250 ML IV ONE (05:45)
--- NOTE | 2025-01-13 06:45 | ECG ---
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
--- NOTE | 2025-01-13 06:46 | ECG ---
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
[2025-01-13 08:01] VITALS: PULSE 91; RESP 17; O2SAT 96
[2025-01-13 08:56] LABS: Urine Bacteria None Seen /hpf (None Seen)
[2025-01-13 10:00] LABS: Urine Blood Negative /uL (Negative); Urine Budding Yeast OCCASIONAL /hpf (None Seen); Urine Clarity Clear (Clear); Urine Color Light-Yellow (Yellow); Urine Protein, UAD TRACE (Negative); Urine Specific Gravity 1.026 (1.001-1.035); Urine Squamous Epithelial Cell FEW /hpf (<5); Urine Urobilinogen Normal (Negative); Urine WBC 5 /HPF (0-5)
[2025-01-13] MEDS ORDERED: InsuLIN REG 1unit/0.01ml Soln (100units/ml) SC ONE (10:45)
[2025-01-13] MEDS ORDERED: ACCU-CHEK COMFORT CURVE STRIP VI ONE (10:45)
[2025-01-13] MEDS: DEXTROSE (50%) 50ML SYRG IV ONE (11:06)
[2025-01-13] MEDS: LACTATED RINGER'S 1,000 ML IV ONE (11:13)
[2025-01-13] MEDS ORDERED: DEXTROSE (50%) 50ML SYRG IV PRN (11:15)
[2025-01-13] MEDS: InsuLIN REG 1unit/0.01ml Soln (100units/ml) SC SCH ×2 (11:30→23:28)
[2025-01-13] MEDS: ACCU-CHEK COMFORT CURVE STRIP VI SCH (11:30)
[2025-01-13] MEDS: LOPERAMIDE HCL 2 MG CAP/TAB PO PRN (13:31)
[2025-01-13] MEDS: PIPERACILLIN-TAZOB 3.375GM 100 ML IV SCH ×2 (14:00→23:30)
[2025-01-13 14:39] LABS: Rapid Influenza A Negative (Negative); Rapid Influenza B Negative (Negative)
[2025-01-13 14:40] LABS: COVID19 ANTIGEN SOFIA FIA NEGATIVE (NEGATIVE)
[2025-01-13 15:08] LABS: Basophils # (auto) 0 10 ^3/uL (0-0.2); Eosinophils # (auto) 0 10 ^3/uL (0-0.8); Eosinophils % (auto) 0.1 % (0.0-7.0); Hematocrit 43.9 % (36.0-46.0); Hemoglobin 14.1 g/dL (12.2-16.2); Lymphocytes # (auto) 0.9 10 ^3/uL (0.4-5.4); Lymphocytes % (auto) 12.1 % (10.0-50.0); Mean Corpuscular Hemoglobin 30.5 pg (28.0-32.0); Mean Corpuscular Volume 95.3 fL (80.0-100.0); Monocytes # (auto) 0.8 10 ^3/uL (0-1.3); Monocytes % (auto) 10.3 % (0.0-12.0); Neutrophils # (auto) 5.8 10 ^3/uL (1.6-8.6); Neutrophils % (auto) 77.5 % (37.0-80.0); Nucleated Red Blood Cells % 0.1 %; Platelet Count (auto) 156 10^3/uL (140-450); Red Blood Cells 4.61 10^6/uL (4.0-5.20); White Blood Cell 7.6 10^3/uL (4.4-10.8)
[2025-01-13 15:35] LABS: Alanine Aminotransferase 42 U/L (7-40); Albumin 3.7 g/dL (3.2-4.8); Alkaline Phosphatase 59 U/L (46-116); Anion Gap 13 (5-15); Aspartate Aminotransferase 41 U/L (13-40); Bilirubin, Total 0.6 mg/dL (0.2-1.0); Calcium 7.8 mg/dL (8.7-10.4); Carbon Dioxide 20 mmol/L (20-31); Chloride 107 mmol/L (98-107); Glucose 124 mg/dL (74-106); Potassium 3.6 mmol/L (3.5-5.1); Sodium 140 mmol/L (136-145); Total Protein 5.6 g/dL (5.7-8.2)
[2025-01-13 15:53] LABS: BUN/Creatinine Ratio 29.3 (10.0-20.0); Blood Urea Nitrogen 17 mg/dL (9-23)
[2025-01-13] MEDS ORDERED: ACETAMINOPHEN 325 MG TAB PO PRN ×2 (18:30→18:45)
[2025-01-13] MEDS ORDERED: SODIUM CHLORIDE 0.9% 1,000 ML IV SCH (18:30)
[2025-01-13] MEDS ORDERED: HYDROcodone-ACET 5/325MG TAB PO PRN ×2 (18:30→18:45)
[2025-01-13] MEDS ORDERED: MORPHINE SULFATE INJ 2 MG/ml SYRG IV PRN ×2 (18:30→18:45)
[2025-01-13] MEDS ORDERED: ONDANSETRON HCL 4 MG/2 ML VIAL IV PRN (18:30)
[2025-01-13] MEDS ORDERED: NITROGLYCERIN 0.4 MG SL TAB SL PRN ×2 (18:30→18:45)
--- NOTE | 2025-01-13 18:40 | DVHHP2 ---
Admitting Diagnosis: Intractable Diarrhea History of Present Illness HPI Patient is a 79-year-old female who presented with complaints of 2 days of intractable diarrhea and vomiting. Patient states she recently returned from traveling [place]. She notes she had 16 episodes of diarrhea last night and presented due to worsening weakness. In the ER, patient was noted to be hypotensive but responded to fluids. She was started on broad-spectrum antibiotics. She was monitored for several hours but she continued to have a few episodes of diarrhea and persistent weakness. Patient was admitted for further medical management. Home Meds Active Scripts Atorvastatin Calcium (ATORVASTATIN CALCIUM) 40 Mg Tab, 40 MG PO DAILY for 30 Days, #30 TAB 0 Refills Prov:MIKE HOLM S DO 03/27/24 Losartan Potassium (Losartan Potassium) 50 Mg Tab, 50 MG PO DAILY for 30 Days, #30 TAB 0 Refills Prov:MIKE HOLM DO 03/27/24 Reported Medications Aspirin (Aspir-Low) 81 Mg Tab, 81 MG PO DAILY for 30 Days, MG 05/05/24 Semaglutide (Ozempic) 2 Mg/3 Ml Inj, 0.5 MG SC QWEEKLY, INJ 05/05/24 Latanoprost (LATANOPROST) 0.005 % Cathy, 1 DROP EACHEYE BID, #2.5 ML 6 Refills 05/05/24 Venlafaxine Hydrochloride (Venlafaxine Hcl) 75 Mg Tab, 75 MG PO DAILY, TAB 05/05/24 Dapagliflozin Propanediol (Farxiga) 10 Mg Tab, 10 MG PO DAILY, TAB 05/05/24 Bupropion Hcl (Bupropion Hcl) 100 Mg Tab, 100 MG PO DAILY for 30 Days, MG 05/05/24 Amiodarone Hcl (Amiodarone Hcl) 200 Mg Tab, 200 MG PO DAILY for 30 Days 05/05/24 Metformin Hydrochloride (Metformin Hcl) 850 Mg Tab, 850 MG PO BID for 30 Days, MG 05/05/24 Pantoprazole Sodium Sesquihydr (Protonix) 40 Mg Tab, 40 MG PO DAILY, #30 TAB 05/05/24 Hydrochlorothiazide (Hydrochlorothiazide) 12.5 Mg Cap, 12.5 MG PO DAILY for 30 Days, MG 05/05/24 Metoprolol Tartrate (Metoprolol Tartrate) 50 Mg Tab, 50 MG PO BID for 30 Days, MG 03/27/24 Apixaban Base (ELIQUIS) 5 Mg Tab, 5 MG PO BID, TAB 03/27/24 Past Medical History Endocrine: NIDDM Patient Family History: History of carcinoma of pancreas G8 MOTHER Hypertension G8 MOTHER Prostate carcinoma G8 FATHER Review of Systems Constitutional: Weakness Gastrointestinal: Nausea, Vomiting, Abdominal Pain, Diarrhea H&P Exam Vital Signs Vital Signs Date Time Temp Pulse Resp B/P (MAP) Pulse Ox O2 Delivery O2 Flow Rate FiO2 01/13/25 16:25 94 18 118/46 (70) 93 01/13/25 08:01 Room Air* 0 21 01/13/25 08:00 98.5 98.5 General Appeara: Mild distress Pulmonary/Respiratory: Lungs clear Cardiovascular/Chest: Regular rate Abdominal Exam: Normal bowel sounds, Soft Labs/Xrays Labs Test 01/13/25 17:07 01/13/25 15:01 01/13/25 13:04 01/13/25 08:54 Range/Units POC Glucose 122 H 70-106 mg/dl White Blood Count 7.6 # 4.4-10.8 10^3/uL Red Blood Count 4.61 4.0-5.20 10^6/uL Hemoglobin 14.1 # 12.2-16.2 g/dL Hematocrit 43.9 # 36.0-46.0 % Mean Corpuscular Volume 95.3 80.0-100.0 fL Mean Corpuscular Hemoglobin 30.5 28.0-32.0 pg Mean Corpuscular Hemoglobin Concent 32.0 32.0-36.0 g/dL Red Cell Distribution Width 16.0 H 11.8-14.3 % Platelet Count 156 140-450 10^3/uL Mean Platelet Volume 7.6 6.9-10.8 fL Neutrophils (%) (Auto) 77.5 37.0-80.0 % Lymphocytes (%) (Auto) 12.1 10.0-50.0 % Monocytes (%) (Auto) 10.3 0.0-12.0 % Eosinophils (%) (Auto) 0.1 0.0-7.0 % Basophils (%) (Auto) 0.0 0.0-2.0 % Neutrophils # (Auto) 5.8 1.6-8.6 10 ^3/uL Lymphocytes # (Auto) 0.9 0.4-5.4 10 ^3/uL Monocytes # (Auto) 0.8 0-1.3 10 ^3/uL Eosinophils # (Auto) 0 0-0.8 10 ^3/uL Basophils # (Auto) 0 0-0.2 10 ^3/uL Nucleated Red Blood Cells 0.1 % Sodium Level 140 # 136-145 mmol/L Potassium Level 3.6 3.5-5.1 mmol/L Chloride Level 107 98-107 mmol/L Carbon Dioxide Level 20 20-31 mmol/L Anion Gap 13 5-15 Blood Urea Nitrogen 17 9-23 mg/dL Creatinine 0.58 # 0.550-1.02 mg/dL Glomerular Filtration Rate Calc 93 >90 mL/min BUN/Creatinine Ratio 29.3 H 10.0-20.0 Serum Glucose 124 H 74-106 mg/dL Calcium Level 7.8 L 8.7-10.4 mg/dL Total Bilirubin 0.6 0.2-1.0 mg/dL Aspartate Amino Transferase (AST) 41 H 13-40 U/L Alanine Aminotransferase (ALT) 42 H 7-40 U/L Alkaline Phosphatase 59 46-116 U/L Total Protein 5.6 L 5.7-8.2 g/dL Albumin 3.7 3.2-4.8 g/dL Random Vancomycin Level 7.6 5-10 ug/mL Influenza Type A Antigen Negative Negative Influenza Type B Antigen Negative Negative SARS-CoV-2 Antigen (Rapid) Negative NEGATIVE Urine Color Light-yellow Yellow Urine Clarity Clear Clear Urine pH 5.0 5.0-9.0 Urine Specific [place] 1.026 1.001-1.035 Urine Protein Trace H Negative Urine Ketones Negative Negative Urine Blood Negative Negative /uL Urine Nitrite Negative Negative Urine Bilirubin Negative Negative Urine Urobilinogen Normal Negative mg/dL Urine Leukocyte Esterase Negative Negative /uL Urine RBC 2 0 - 4 /hpf Urine Microscopic WBC 5 0-5 /HPF Urine Squamous Epithelial Cells Few <5 /hpf Urine Bacteria None seen None Seen /hpf Urine Yeast (Budding) Occasional None Seen /hpf Urine Glucose 3+ H Normal mg/dL Test 01/13/25 03:30 01/12/25 23:27 Range/Units Lactic Acid Level 1.5 0.4-2.0 mmol/L Troponin I High Sensitivity 6 </=34 ng/L Assessment/Plan Primary Diagnosis 1. Diarrhea 2' Diagnosis/Co-morbidities 2. Type 2 Diabetes 3. Generalized Weakness Plan -Admit to MedSurg -NS at 100 mL/h -Vancomycin and Zosyn -Clear liquid diet -Lovenox for DVT prophylaxis -Stool ova and parasites, C. difficile ordered -Blood cultures ordered -Flu and COVID negative -Daily CBC and CMP -PT eval ordered -Insulin sliding scale for type 2 diabetes -Full code Plan discussed with: Patient SALMA HOLMLopez Bhakta DO Jan 13, 2025 18:40
[2025-01-13] MEDS: SODIUM CHLORIDE 0.9% 1,000 ML IV SCH (19:06)
[2025-01-13 20:00] VITALS: PULSE 150; RESP 26; O2SAT 96
[2025-01-13] MEDS: AMIODARONE BOLUS KIT 100 ML IV ONE (20:40)
[2025-01-13] MEDS: AMIODARONE 360mg/200mL PREMIX 200 ML IV ONE (21:01)
[2025-01-13 22:08] VITALS: BP 139/77; PULSE 134; RESP 19; TEMP 98.8; O2SAT 96
[2025-01-13 23:27] VITALS: PULSE 134; RESP 19; O2SAT 96
[2025-01-13] MEDS: APIXABAN 5 MG TAB PO SCH (23:27)
[2025-01-14] VITALS (7 sets, daily range): BP systolic 103–154; BP diastolic 49–78; PULSE 68–145; RESP 14–20; TEMP 97.9–98.8; O2SAT 94–100
[2025-01-14] MEDS: LOPERAMIDE HCL 2 MG CAP/TAB PO PRN (00:35)
[2025-01-14] MEDS: AMIODARONE 360mg/200mL PREMIX 200 ML IV SCH (02:45)
--- NOTE | 2025-01-14 07:05 | ECG ---
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
[2025-01-14 07:29] LABS: Basophils # (auto) 0 10 ^3/uL (0-0.2); Basophils % (auto) 0.1 % (0.0-2.0); Eosinophils # (auto) 0 10 ^3/uL (0-0.8); Hematocrit 47.9 % (36.0-46.0); Lymphocytes % (auto) 19.2 % (10.0-50.0); Mean Corpuscular Hemoglobin 30.9 pg (28.0-32.0); Mean Corpuscular Hgb Conc. 33.5 g/dL (32.0-36.0); Mean Corpuscular Volume 92.4 fL (80.0-100.0); Monocytes # (auto) 0.8 10 ^3/uL (0-1.3); Monocytes % (auto) 14.3 % (0.0-12.0); Neutrophils # (auto) 3.6 10 ^3/uL (1.6-8.6); Neutrophils % (auto) 66.4 % (37.0-80.0); Nucleated Red Blood Cells % 0.1 %; Platelet Count (auto) 162 10^3/uL (140-450); Red Blood Cells 5.18 10^6/uL (4.0-5.20); Red Cell Distribution Width 15.4 % (11.8-14.3); White Blood Cell 5.4 10^3/uL (4.4-10.8)
[2025-01-14 08:12] LABS: Albumin 4.2 g/dL (3.2-4.8); Alkaline Phosphatase 67 U/L (46-116); Anion Gap 14 (5-15)
[2025-01-14 08:13] LABS: Bilirubin, Total 0.5 mg/dL (0.2-1.0)
[2025-01-14 08:17] LABS: Alanine Aminotransferase 44 U/L (7-40); Aspartate Aminotransferase 53 U/L (13-40); BUN/Creatinine Ratio 9.6 (10.0-20.0); Blood Urea Nitrogen < 5 mg/dL (9-23); Calcium 8.6 mg/dL (8.7-10.4); Carbon Dioxide 18 mmol/L (20-31); Chloride 106 mmol/L (98-107); Glucose 157 mg/dL (74-106); Potassium 3.5 mmol/L (3.5-5.1); Sodium 138 mmol/L (136-145)
[2025-01-14] MEDS: LOSARTAN POTASSIUM 50 MG TAB PO SCH (08:31)
[2025-01-14] MEDS: PANTOPRAZOLE 40 MG TAB PO SCH (08:33)
[2025-01-14] MEDS: ASPirin-EC 81 mg tab PO SCH (08:33)
[2025-01-14] MEDS: METOPROLOL TARTRATE 50 MG TAB PO SCH (08:39)
[2025-01-14] MEDS ORDERED: LATANOPROST 0.005 % OPTH(EYE) SOL 2.5ML EACHEYE SCH (10:00)
[2025-01-14] MEDS: buPROPion HCL 100 MG TAB PO SCH (10:00)
[2025-01-14] MEDS: VENLAFAXINE HCL 37.5MG TABLET PO SCH (10:00)
[2025-01-14] MEDS ORDERED: APIXABAN 5 MG TAB PO SCH (10:00)
--- NOTE | 2025-01-14 10:25 | DVHINCON2 ---
Date of service: Jan 14, 2025 History of Present Illness HPI 79-year-old female presented with few days of significant nausea/vomiting. She mentioned she had 16 times of vomiting/diarrhea before presenting to the hospital. [place]. She has been admitted with gastroenteritis. There is question about infectious etiology for the presentation. While being managed, the patient was found to have atrial fibrillation with RVR and cardiology was involved. Her usual outpatient shower doors and panels fabricator is Dr. Trotter. Does have baseline history of atrial fibrillation. Does take Eliquis as outpatient. Home Meds Active Scripts Atorvastatin Calcium (ATORVASTATIN CALCIUM) 40 Mg Tab, 40 MG PO DAILY for 30 Days, #30 TAB 0 Refills Prov:MIKE HOLM DO 03/27/24 Losartan Potassium (Losartan Potassium) 50 Mg Tab, 50 MG PO DAILY for 30 Days, #30 TAB 0 Refills Prov:LIDIAMIKE BHATT DO 03/27/24 Reported Medications Aspirin (Aspir-Low) 81 Mg Tab, 81 MG PO DAILY for 30 Days, MG 05/05/24 Semaglutide (Ozempic) 2 Mg/3 Ml Inj, 0.5 MG SC QWEEKLY, INJ 05/05/24 Latanoprost (LATANOPROST) 0.005 % Cathy, 1 DROP EACHEYE BID, #2.5 ML 6 Refills 05/05/24 Venlafaxine Hydrochloride (Venlafaxine Hcl) 75 Mg Tab, 75 MG PO DAILY, TAB 05/05/24 Dapagliflozin Propanediol (Farxiga) 10 Mg Tab, 10 MG PO DAILY, TAB 05/05/24 Bupropion Hcl (Bupropion Hcl) 100 Mg Tab, 100 MG PO DAILY for 30 Days, MG 05/05/24 Amiodarone Hcl (Amiodarone Hcl) 200 Mg Tab, 200 MG PO DAILY for 30 Days 05/05/24 Metformin Hydrochloride (Metformin Hcl) 850 Mg Tab, 850 MG PO BID for 30 Days, MG 05/05/24 Pantoprazole Sodium Sesquihydr (Protonix) 40 Mg Tab, 40 MG PO DAILY, #30 TAB 05/05/24 Hydrochlorothiazide (Hydrochlorothiazide) 12.5 Mg Cap, 12.5 MG PO DAILY for 30 D ays, MG 05/05/24 Metoprolol Tartrate (Metoprolol Tartrate) 50 Mg Tab, 50 MG PO BID for 30 Days, MG 03/27/24 Apixaban Base (ELIQUIS) 5 Mg Tab, 5 MG PO BID, TAB 03/27/24 Past Medical History Others Past medical history includes hypertension, diabetes mellitus, hyperlipidemia, atrial fibrillation, asthma, old history of breast cancer, 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 Patient Family History: History of carcinoma of pancreas G8 MOTHER Hypertension G8 MOTHER Prostate carcinoma G8 FATHER Lives with: With family Review of Systems All Other Systems 14 point review of system was performed. Relevant findings as per above and as per HPI. Otherwise negative H&P Exam Vital Signs Vital Signs Date Time Temp Pulse Resp B/P (MAP) Pulse Ox O2 Delivery O2 Flow Rate FiO2 01/14/25 08:39 145 103/68 01/14/25 08:30 98.8 14 98 98.8 01/13/25 23:27 Room Air* 0 21 General Appeara: Well developed Head Exam: Normal inspection Eye Exam: bilateral eye PERRL Mouth: Normal Inspection Pulmonary/Respiratory: Lungs clear Cardiovascular/Chest: Normal inspection, Tachycardia, Systolic murmur, Irregularly irregular Peripheral Pulses: 2+ carotid (R), 2+ carotid (L), 2+ femoral (R), 2+ femoral (L), 2+ dorsalis pedis (R), 2+ dorsalis pedis (L), 2+ Radial (R), 2+ Radial (L) Abdominal Exam: Soft Neuro/Mental St: Alert, Oriented Appearance: Appropriate appearance Eye contact/ Speech: Cooperative Labs/Xrays Labs Test 01/14/25 07:06 01/14/25 05:56 01/13/25 15:01 01/13/25 13:04 Range/Units White Blood Count 5.4 # 4.4-10.8 10^3/uL Red Blood Count 5.18 4.0-5.20 10^6/uL Hemoglobin 16.0 12.2-16.2 g/dL Hematocrit 47.9 H 36.0-46.0 % Mean Corpuscular Volume 92.4 80.0-100.0 fL Mean Corpuscular Hemoglobin 30.9 28.0-32.0 pg Mean Corpuscular Hemoglobin Concent 33.5 32.0-36.0 g/dL Red Cell Distribution Width 15.4 H 11.8-14.3 % Platelet Count 162 140-450 10^3/uL Mean Platelet Volume 7.8 6.9-10.8 fL Neutrophils (%) (Auto) 66.4 37.0-80.0 % Lymphocytes (%) (Auto) 19.2 10.0-50.0 % Monocytes (%) (Auto) 14.3 H 0.0-12.0 % Eosinophils (%) (Auto) 0.0 0.0-7.0 % Basophils (%) (Auto) 0.1 0.0-2.0 % Neutrophils # (Auto) 3.6 1.6-8.6 10 ^3/uL Lymphocytes # (Auto) 1.0 0.4-5.4 10 ^3/uL Monocytes # (Auto) 0.8 0-1.3 10 ^3/uL Eosinophils # (Auto) 0 0-0.8 10 ^3/uL Basophils # (Auto) 0 0-0.2 10 ^3/uL Nucleated Red Blood Cells 0.1 % Sodium Level 138 136-145 mmol/L Potassium Level 3.5 3.5-5.1 mmol/L Chloride Level 106 98-107 mmol/L Carbon Dioxide Level 18 L 20-31 mmol/L Anion Gap 14 5-15 Blood Urea Nitrogen < 5 #L 9-23 mg/dL Creatinine 0.52 L 0.550-1.02 mg/dL Glomerular Filtration Rate Calc 96 >90 mL/min BUN/Creatinine Ratio 9.6 L 10.0-20.0 Serum Glucose 157 H 74-106 mg/dL Calcium Level 8.6 L 8.7-10.4 mg/dL Total Bilirubin 0.5 0.2-1.0 mg/dL Aspartate Amino Transferase (AST) 53 H 13-40 U/L Alanine Aminotransferase (ALT) 44 H 7-40 U/L Alkaline Phosphatase 67 46-116 U/L Total Protein 7.0 5.7-8.2 g/dL Albumin 4.2 3.2-4.8 g/dL POC Glucose 163 H 70-106 mg/dl Random Vancomycin Level 7.6 5-10 ug/mL Influenza Type A Antigen Negative Negative Influenza Type B Antigen Negative Negative SARS-CoV-2 Antigen (Rapid) Negative NEGATIVE Test 01/13/25 08:54 01/13/25 03:30 01/12/25 23:27 Range/Units Urine Color Light-yellow Yellow Urine Clarity Clear Clear Urine pH 5.0 5.0-9.0 Urine Specific [place] 1.026 1.001-1.035 Urine Protein Trace H Negative Urine Ketones Negative Negative Urine Blood Negative Negative /uL Urine Nitrite Negative Negative Urine Bilirubin Negative Negative Urine Urobilinogen Normal Negative mg/dL Urine Leukocyte Esterase Negative Negative /uL Urine RBC 2 0 - 4 /hpf Urine Microscopic WBC 5 0-5 /HPF Urine Squamous Epithelial Cells Few <5 /hpf Urine Bacteria None seen None Seen /hpf Urine Yeast (Budding) Occasional None Seen /hpf Urine Glucose 3+ H Normal mg/dL Lactic Acid Level 1.5 0.4-2.0 mmol/L Troponin I High Sensitivity 6 </=34 ng/L Microbiology Date/Time Source Procedure Growth Status 01/13/25 15:21 Stool Stool Culture - Preliminary Resulted 01/13/25 15:21 Stool Shiga Toxin I & II Pending Resulted 01/13/25 15:21 Stool Clostridium difficile Toxin Assay Pending Resulted 01/13/25 01:35 Blood Blood Culture - Preliminary NO GROWTH AFTER 24 HOURS OF INCUBATION. Resulted Assessment/Plan Plan 79-year-old female presented with few days of significant nausea/vomiting. She mentioned she had 16 times of vomiting/diarrhea before presenting to the hospital. [place]. She has been admitted with gastroenteritis. There is question about infectious etiology for the presentation. While being managed, the patient was found to have atrial fibrillation with RVR and cardiology was involved. Her usual outpatient shower doors and panels fabricator is Dr. Trotter. Does have baseline history of atrial fibrillation. Does take Eliquis as outpatient. Not in acute distress. Mucosa is pink and wet. No carotid bruit. No goiter. Lungs are clear to auscultation. Not using accessory muscles of breathing. Cardiac: Irregular and fast. Systolic murmur 2/6 in the apex is heard. Abdomen is soft. Bowel sound is a increased. There is no gross mass. Extremities do not reveal edema. 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 Echocardiogram of March 2024 revealed ejection fraction of 55% WBC: 12.7 - 7.6 - 5.4 Troponin (high sensitive): 5 - 6 Creatinine: 1.18-0.60 - 0.58 - 0.52 Potassium: 4.6 - 3.6 - 3.5 Chest x-ray revealed: IMPRESSION: 1. No acute disease. CT of the abdomen and pelvis revealed: IMPRESSION: 1. No acute abdominal finding.Hepatomegaly 2. And hepatic steatosis. 3. Several right lower lobe pulmonary nodules of uncertain etiology and/or significance. Recommend comparison with prior exams if available and follow-up evaluation. EKG revealed atrial fibrillation with RVR Tele reveals atrial fibrillation Patient is a 79-year-old female who presented with abdominal pain/nausea and vomiting. Presentation is in favor of gastroenteritis. Needed fluid resuscitation on arrival. Is found to have atrial fibrillation with RVR. Does have baseline history of atrial fibrillation and is on Eliquis as outpatient. Her outside shower doors and panels fabricator is Dr. Trotter. Gastroenteritis Atrial fibrillation with RVR Diabetes mellitus Hypertension Hyperlipidemia Cardiac suggestion for management: Managed on telemetry Fluid resuscitation Follow-up electrolytes and kidney function tests and correct abnormalities Continue full anticoagulation (on Eliquis as outpatient) For now, continue IV amiodarone Request for echocardiogram Pulmonary evaluation for reported left lower lung nodularity is suggested (if primary team agrees) Evaluation and management of nausea/vomiting as per primary team/GI Further evaluation and management depends on the above and clinical course Thank you for consultation A total of 75 minutes was spent reviewing the patient record, examining the patient, making a diagnostic and therapeutic plan, discussing this plan with medical personnel, following up on diagnostic studies and following the patient for clinical stability excluding any and all procedures. At least 50% of this time was spent in direct, [id number] contact. Thank you for allowing me to participate in this patient's care. Further recommendations will depend on patient's clinical course. Please do not hesitate to contact me if you have any questions or concerns. This medical document was created using electronic medical record system with [employer] dictation system. Although this document has been carefully reviewed, there may still be some phonetic and typographical errors. These areas are purely typographical due to the imperfection of the software programs, and do not reflect any compromise in the patient's medical care. Plan discussed with: Patient, Other (nurse) KASIA HUDDLESTON MD Jan 14, 2025 10:25
--- NOTE | 2025-01-14 12:59 | DVHPN2 ---
Progress Note - Dictate Date Seen: Jan 14, 2025 Medical Necessity Reason Pt with a Central, PICC or Fol: No Subjective Patient incredibly weak this morning. Notes 3 episodes of diarrhea. Unable to get up from bed on own. Noted to go into atrial fibrillation with RVR last night. vital signs Vital Sign Date Time Temp Pulse Resp B/P (MAP) Pulse Ox O2 Delivery O2 Flow Rate FiO2 01/14/25 08:39 145 103/68 01/14/25 08:30 98.8 14 98 98.8 01/14/25 08:00 Nasal Cannula* 2 28 Total Intake and Output 01/13/25 01/13/25 01/14/25 15:00 23:00 07:00 Intake Total 1483.33 ml 100 ml Output Total 4 ml Balance 1483.33 ml 96 ml medications Current Medications Medications Dose Ordered Sig/Cullen Route Start Time Stop Time Status Last Admin Dose Admin Diagnostic Test (Pha) 1 strip ACHS 01/13/25 11:30 01/14/25 11:52 1 STRIP Dextrose 50 ml UD PRN IV 01/13/25 11:15 Vancomycin HCl 150 ml @ 150 mls/hr DAILY@1600 IV 01/14/25 16:00 Ondansetron HCl 4 mg Q4HP PRN IV 01/13/25 18:45 Morphine Sulfate 2 mg Q30M PRN IV 01/13/25 18:45 Hold Vancomycin HCl 0 ml @ 0 mls/hr UD IV 01/13/25 18:45 Sodium Chloride 1,000 ml @ 100 mls/hr Q10H IV 01/13/25 18:45 01/13/25 19:06 100 MLS/HR Acetaminophen 325 mg Q4HP PRN PO 01/13/25 18:45 Acetaminophen/ Hydrocodone Bitart 1 tab Q4HP PRN PO 01/13/25 18:45 Hold Nitroglycerin 0.4 mg Q5MINP PRN SL 01/13/25 18:45 Aspirin 81 mg DAILY PO 01/14/25 10:00 01/14/25 08:33 81 MG Bupropion HCl 100 mg DAILY PO 01/14/25 10:00 Latanoprost 1 drop BID EACHEYE 01/14/25 10:00 Hold Losartan Potassium 50 mg DAILY PO 01/14/25 10:00 Metoprolol Tartrate 50 mg BID PO 01/14/25 10:00 01/14/25 08:39 50 MG Pantoprazole Sodium 40 mg DAILY PO 01/14/25 10:00 01/14/25 08:33 40 MG Atorvastatin Calcium 40 mg HS PO 01/14/25 22:00 Venlafaxine HCl 75 mg DAILY PO 01/14/25 10:00 Apixaban 5 mg BID PO 01/13/25 23:00 01/14/25 08:32 5 MG Insulin Human Regular ACHS SC 01/13/25 23:30 01/14/25 11:51 3 UNITS Piperacillin Sod/ Tazobactam Sod 100 ml @ 25 mls/hr Q8H IV 01/14/25 00:00 01/14/25 08:30 25 MLS/HR Loperamide HCl 2 mg PRN PRN PO 01/14/25 00:30 01/14/25 11:38 2 MG objective General appearance: Ill-appearing Respiratory:Fine bibasilar crackles, on nasal cannula Cardiovascular: Irregular rate and rhythm Abdomen: Soft, nondistended, nontender, bowel sounds present MSK: Normal range of motion but weak Neuro: Alert, no neurological deficits Psych: Appropriate mood and affect. laboratory and microbiology Laboratory Tests 01/14/25 07:06 Test 01/14/25 07:06 Range/Units Serum Glucose 157 H 74-106 mg/dL Assessment/Plan 1. Diarrhea 2' Diagnosis/Co-morbidities 2. Type 2 Diabetes 3. Generalized Weakness 4. Atrial Fibrillation with RVR 5. Right Lower Lobe Pulmonary Nodules on CT Plan -NS at 100 mL/h -Vancomycin and Zosyn -Clear liquid diet -Lovenox for DVT prophylaxis -Stool ova and parasites, C. difficile ordered -Blood cultures ordered, NGTD -Flu and COVID negative -Daily CBC and CMP -ID consulted due to persistent diarrhea -PT eval ordered -Insulin sliding scale for type 2 diabetes -Repeat CXR this AM due to increased oxygen requirement -Cardiology consulted for atrial fibrillation with RVR. Amiodarone drip started. Eliquis started. -Outpatient follow up for repeat imaging of chest to evaluate pulmonary nodules -Full code Plan discussed with: Patient Plan discussed with: Patient MIKE HOLM Jan 14, 2025 12:59
[2025-01-14] MEDS ORDERED: LOPERAMIDE HCL 2 MG CAP/TAB PO PRN (13:00)
--- NOTE | 2025-01-14 14:55 | DVH ---
CHEST RADIOGRAPH Indication: Acute resp failure concern for pulm vasc congestion on IVF Technique: Single frontal view of the chest was obtained Comparison: XY CHEST PORTABLE on DOS: 01/12/25, XY CHEST XRAY 1 VIEW on DOS: 03/26/24, CHEST PORTABLE on DOS: 09/17/19 FINDINGS: Lines and Tubes: None Lungs: No focal consolidation. Pleura: No effusion. No pneumothorax. Cardiomediastinal contours: Unremarkable Bones: No acute osseous abnormality. IMPRESSION: No acute cardiopulmonary disease.
[2025-01-14] MEDS: VANCOMYCIN 750mg/150ml 150 ML IV SCH (15:50)
[2025-01-14] MEDS: ATORVASTATIN 20 MG TAB PO SCH (21:56)
[2025-01-15] VITALS (8 sets, daily range): BP systolic 110–142; BP diastolic 51–65; PULSE 60–73; RESP 14–18; TEMP 97.5–98.1; O2SAT 97–100
[2025-01-15 06:08] LABS: Basophils # (auto) 0 10 ^3/uL (0-0.2); Basophils % (auto) 0.2 % (0.0-2.0); Eosinophils # (auto) 0 10 ^3/uL (0-0.8); Eosinophils % (auto) 0.7 % (0.0-7.0); Hematocrit 45.5 % (36.0-46.0); Hemoglobin 15.1 g/dL (12.2-16.2); Lymphocytes % (auto) 32.9 % (10.0-50.0); Mean Corpuscular Hemoglobin 30.7 pg (28.0-32.0); Mean Corpuscular Hgb Conc. 33.3 g/dL (32.0-36.0); Mean Corpuscular Volume 92.3 fL (80.0-100.0); Monocytes # (auto) 0.5 10 ^3/uL (0-1.3); Monocytes % (auto) 15.7 % (0.0-12.0); Neutrophils # (auto) 1.5 10 ^3/uL (1.6-8.6); Neutrophils % (auto) 50.5 % (37.0-80.0); Nucleated Red Blood Cells % 0.4 %; Platelet Count (auto) 164 10^3/uL (140-450); Red Blood Cells 4.93 10^6/uL (4.0-5.20); Red Cell Distribution Width 15.6 % (11.8-14.3); White Blood Cell 2.9 10^3/uL (4.4-10.8)
[2025-01-15 06:35] LABS: Albumin 3.9 g/dL (3.2-4.8); Alkaline Phosphatase 61 U/L (46-116); Anion Gap 11 (5-15); BUN/Creatinine Ratio 11.9 (10.0-20.0); Carbon Dioxide 24 mmol/L (20-31); Sodium 143 mmol/L (136-145); Total Protein 6.1 g/dL (5.7-8.2)
[2025-01-15 06:36] LABS: Bilirubin, Total 0.5 mg/dL (0.2-1.0)
--- NOTE | 2025-01-15 06:38 | DVHPN2 ---
Progress Note - Dictate Date Seen: Jan 15, 2025 Medical Necessity Reason Pt with a Central, PICC or Fol: No vital signs Vital Sign Date Time Temp Pulse Resp B/P (MAP) Pulse Ox O2 Delivery O2 Flow Rate FiO2 01/15/25 05:00 97.5 60 17 110/55 (73) 100 97.5 01/14/25 20:00 Nasal Cannula* 2 28 Total Intake and Output 01/14/25 01/14/25 01/15/25 14:59 22:59 06:59 Intake Total 1240 ml 1083.3 ml 150 ml Balance 1240 ml 1083.3 ml 150 ml medications Current Medications Medications Dose Ordered Sig/Cullen Route Start Time Stop Time Status Last Admin Dose Admin Diagnostic Test (Pha) 1 strip ACHS 01/13/25 11:30 01/15/25 06:09 1 STRIP Dextrose 50 ml UD PRN IV 01/13/25 11:15 Vancomycin HCl 150 ml @ 150 mls/hr DAILY@1600 IV 01/14/25 16:00 01/14/25 15:50 150 MLS/HR Ondansetron HCl 4 mg Q4HP PRN IV 01/13/25 18:45 Morphine Sulfate 2 mg Q30M PRN IV 01/13/25 18:45 Hold Vancomycin HCl 0 ml @ 0 mls/hr UD IV 01/13/25 18:45 Sodium Chloride 1,000 ml @ 100 mls/hr Q10H IV 01/13/25 18:45 01/14/25 14:21 100 MLS/HR Acetaminophen 325 mg Q4HP PRN PO 01/13/25 18:45 Acetaminophen/ Hydrocodone Bitart 1 tab Q4HP PRN PO 01/13/25 18:45 Hold Nitroglycerin 0.4 mg Q5MINP PRN SL 01/13/25 18:45 Aspirin 81 mg DAILY PO 01/14/25 10:00 01/14/25 08:33 81 MG Bupropion HCl 100 mg DAILY PO 01/14/25 10:00 Latanoprost 1 drop BID EACHEYE 01/14/25 10:00 Hold Losartan Potassium 50 mg DAILY PO 01/14/25 10:00 Metoprolol Tartrate 50 mg BID PO 01/14/25 10:00 01/14/25 21:57 50 MG Pantoprazole Sodium 40 mg DAILY PO 01/14/25 10:00 01/14/25 08:33 40 MG Atorvastatin Calcium 40 mg HS PO 01/14/25 22:00 01/14/25 21:56 40 MG Venlafaxine HCl 75 mg DAILY PO 01/14/25 10:00 Apixaban 5 mg BID PO 01/13/25 23:00 01/14/25 21:56 5 MG Insulin Human Regular ACHS SC 01/13/25 23:30 01/15/25 06:10 2 UNITS Piperacillin Sod/ Tazobactam Sod 100 ml @ 25 mls/hr Q8H IV 01/14/25 00:00 01/14/25 23:33 25 MLS/HR Loperamide HCl 2 mg Q6HP PRN PO 01/14/25 13:00 laboratory and microbiology Laboratory Tests 01/15/25 05:39 Test 01/15/25 05:39 Range/Units Serum Glucose Pending Assessment/Plan 79-year-old female presented with few days of significant nausea/vomiting. She mentioned she had 16 times of vomiting/diarrhea before presenting to the hospital. [place]. She has been admitted with gastroenteritis. There is question about infectious etiology for the presentation. While being managed, the patient was found to have atrial fibrillation with RVR and cardiology was involved. Her usual outpatient computer teacher is Dr. Trotter. Does have baseline history of atrial fibrillation. Does take Eliquis as outpatient. Not in acute distress. Mucosa is pink and wet. No carotid bruit. No goiter. Lungs are clear to auscultation. Not using accessory muscles of breathing. Cardiac: Irregular and fast. Systolic murmur 2/6 in the apex is heard. Abdomen is soft. Bowel sound is a increased. There is no gross mass. Extremities do not reveal edema. 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 Echocardiogram of March 2024 revealed ejection fraction of 55% WBC: 12.7 - 7.6 - 5.4 - 2.9 Troponin (high sensitive): 5 - 6 Creatinine: 1.18-0.60 - 0.58 - 0.52 today's pending Potassium: 4.6 - 3.6 - 3.5 today's pending Chest x-ray revealed: IMPRESSION: 1. No acute disease. Repeat chest xry revealed: IMPRESSION: No acute cardiopulmonary disease. CT of the abdomen and pelvis revealed: IMPRESSION: 1. No acute abdominal finding.Hepatomegaly 2. And hepatic steatosis. 3. Several right lower lobe pulmonary nodules of uncertain etiology and/or significance. Recommend comparison with prior exams if available and follow-up evaluation. EKG revealed atrial fibrillation with RVR Tele revealed atrial fibrillation, then NSR Echocardiogram revealed: Left ventricle: Mild concentric left ventricular hypertrophy was seen. LVEF was 57%. There was no gross wall motion abnormality. Right ventricle was normal-sized with normal systolic function. Both atria were normal-sized. Aortic valve: Aortic valve was trileaflet. There was no aortic stenosis. There was trivial aortic insufficiency. There was trivial mitral/tricuspid regurgitation. There was trivial pulmonary valve insufficiency. As there was no good tricuspid regurgitation jet, right ventricular systolic pressure could not be estimated. There was no echocardiographic evidence for pulmonary hypertension. IVC was normal-sized with normal respiratory variation. There was no pericardial effusion. Patient is a 79-year-old female who presented with abdominal pain/nausea and vomiting. Presentation is in favor of gastroenteritis. Needed fluid resuscitation on arrival. Is found to have atrial fibrillation with RVR. Does have baseline history of atrial fibrillation and is on Eliquis as outpatient. Her outside computer teacher is Dr. Trotter. Later (on IV amiodarone), converted to sinus rhythm Gastroenteritis Atrial fibrillation with RVR Diabetes mellitus Hypertension Hyperlipidemia Cardiac suggestion for management: Managed on telemetry Fluid resuscitation Follow-up electrolytes and kidney function tests and correct abnormalities Continue full anticoagulation (on Eliquis as outpatient) Stop IV Amiodarone. Start oral Amiodarone (200 mg PO BID) Pulmonary evaluation for reported left lower lung nodularity is suggested (if primary team agrees) Evaluation and management of nausea/vomiting as per primary team/GI Further evaluation and management depends on the above and clinical course A total of 55 minutes was spent reviewing the patient record, examining the patient, making a diagnostic and therapeutic plan, discussing this plan with medical personnel, following up on diagnostic studies and following the patient for clinical stability excluding any and all procedures. At least 50% of this time was spent in direct, [id number] contact. Thank you for allowing me to participate in this patient's care. Further recommendations will depend on patient's clinical course. Please do not hesitate to contact me if you have any questions or concerns. This medical document was created using electronic medical record system with [employer] computerized dictation system. Although this document has been carefully reviewed, there may still be some phonetic and typographical errors. These areas are purely typographical due to the imperfection of the software programs, and do not reflect any compromise in the patient's medical care. Plan discussed with: Patient, Other (nurse) KASIA HUDDLESTON MD Jan 15, 2025 06:38
[2025-01-15 06:40] LABS: Alanine Aminotransferase 45 U/L (7-40); Aspartate Aminotransferase 54 U/L (13-40); Blood Urea Nitrogen 7 mg/dL (9-23); Calcium 8.4 mg/dL (8.7-10.4); Chloride 108 mmol/L (98-107); Glucose 133 mg/dL (74-106); Potassium 3.4 mmol/L (3.5-5.1)
--- NOTE | 2025-01-15 06:54 | DVHSR ---
APPROVED REPORT EXAM: Two-dimensional and M-mode echocardiogram with Doppler and color Doppler. Blood Pressure: 103/68 mmHg INDICATION Tachycardia RISK FACTORS Height: 4'8", Weight: 161 DIMENSIONS LVDd3.9 (3.8-5.7cm)LA (2D)3.8 (1.9-4.0cm)Aortic Root3.3 (2.0-3.7cm) LVDs2.9 (2.5-4.0cm)LA (MM) (1.9-4.0cm)Aortic Cusp Exc1.5 (1.5-2.0cm) EF (%) 55.0 (55-70%)Rt. Atrium (1.9-4.0cm)Asc. Aorta cm IVSd1.0 (0.7-1.1cm)RV (D) (1.8-2.4cm) PWd1.1 (0.7-1.1cm) Mitral Valve MitralMitral Stenosis E wave0.92m/sMV Mean GR.mmHg A wave0.56m/sMV Peak GR.mmHg E/A ratio1.62D MVAcm2 DECEL [id number] 1/2 Timems Aortic Valve Aortic ValveAortic Stenosis V10.88m/David Mean GR.4mmHg V21.36m/David Peak GR.7mmHg LVOT Diameter1.6 (1.8-2.4cm)Doppler AVA1.30cm2 AI P 1/2 [id number] Pulmonic Valve V20.73m/s Other Information Technically limited study due to body habitus, patient lying flat. Conclusion Left ventricle: Mild concentric left ventricular hypertrophy was seen. LVEF was 57%. There was no gr oss wall motion abnormality. Right ventricle was normal-sized with normal systolic function. Both atria were normal-sized. Aortic valve: Aortic valve was trileaflet. There was no aortic stenosis. There was trivial aortic i nsufficiency. There was trivial mitral/tricuspid regurgitation. There was trivial pulmonary valve i nsufficiency. As there was no good tricuspid regurgitation jet, right ventricular systolic pressure could not be es timated. There was no echocardiographic evidence for pulmonary hypertension. IVC was normal-sized with normal respiratory variation. There was no pericardial effusion.
[2025-01-15] MEDS: AMIODARONE HCL 200 MG TAB PO SCH (09:07)
[2025-01-15] MEDS: ONDANSETRON HCL 4 MG/2 ML VIAL IV PRN (09:12)
[2025-01-15] MEDS: LOPERAMIDE HCL 2 MG CAP/TAB PO SCH (10:20)
[2025-01-15] MEDS ORDERED: DORZ2SOL18 EACHEYE (11:14)
[2025-01-15] MEDS: LATANOPROST 0.005 % OPTH(EYE) SOL 2.5ML EACHEYE SCH ×2 (18:00→21:14)
[2025-01-15] MEDS: DORZOLAMIDE HCL 2% OPTH(EYE) SOL 10ML EACHEYE SCH (21:14)
--- NOTE | 2025-01-15 21:36 | DVHPN2 ---
Progress Note - Dictate Date Seen: Jan 15, 2025 Medical Necessity Reason Pt with a Central, PICC or Fol: No Subjective Patient incredibly weak this morning.Continues to complain of diarrhea. vital signs Vital Sign Date Time Temp Pulse Resp B/P (MAP) Pulse Ox O2 Delivery O2 Flow Rate FiO2 01/15/25 21:15 66 127/62 01/15/25 17:00 98.0 16 98 98.0 01/15/25 08:00 Nasal Cannula* 2 28 Total Intake and Output 01/14/25 01/14/25 01/15/25 15:00 23:00 07:00 Intake Total 1240 ml 1083.3 ml 150 ml Balance 1240 ml 1083.3 ml 150 ml medications Current Medications Medications Dose Ordered Sig/Cullen Route Start Time Stop Time Status Last Admin Dose Admin Diagnostic Test (Pha) 1 strip ACHS 01/13/25 11:30 01/15/25 21:15 1 STRIP Dextrose 50 ml UD PRN IV 01/13/25 11:15 Ondansetron HCl 4 mg Q4HP PRN IV 01/13/25 18:45 01/15/25 09:12 4 MG Morphine Sulfate 2 mg Q30M PRN IV 01/13/25 18:45 Hold Sodium Chloride 1,000 ml @ 100 mls/hr Q10H IV 01/13/25 18:45 01/15/25 10:21 100 MLS/HR Acetaminophen 325 mg Q4HP PRN PO 01/13/25 18:45 Acetaminophen/ Hydrocodone Bitart 1 tab Q4HP PRN PO 01/13/25 18:45 Hold Nitroglycerin 0.4 mg Q5MINP PRN SL 01/13/25 18:45 Aspirin 81 mg DAILY PO 01/14/25 10:00 01/15/25 09:06 81 MG Bupropion HCl 100 mg DAILY PO 01/14/25 10:00 01/15/25 09:06 100 MG Latanoprost 1 drop BID EACHEYE 01/14/25 10:00 Hold Losartan Potassium 50 mg DAILY PO 01/14/25 10:00 01/15/25 09:09 50 MG Metoprolol Tartrate 50 mg BID PO 01/14/25 10:00 01/15/25 09:10 50 MG Pantoprazole Sodium 40 mg DAILY PO 01/14/25 10:00 01/15/25 09:08 40 MG Atorvastatin Calcium 40 mg HS PO 01/14/25 22:00 01/15/25 21:15 40 MG Venlafaxine HCl 75 mg DAILY PO 01/14/25 10:00 01/15/25 09:07 75 MG Apixaban 5 mg BID PO 01/13/25 23:00 01/15/25 21:15 5 MG Insulin Human Regular ACHS SC 01/13/25 23:30 01/15/25 11:58 3 UNITS Piperacillin Sod/ Tazobactam Sod 100 ml @ 25 mls/hr Q8H IV 01/14/25 00:00 01/15/25 16:49 25 MLS/HR Amiodarone HCl 200 mg BID PO 01/15/25 10:00 01/15/25 21:14 200 MG Loperamide HCl 4 mg Q6HP PO 01/15/25 10:00 01/16/25 10:00 01/15/25 18:12 4 MG Dorzolamide HCl 1 drop BID EACHEYE 01/15/25 22:00 01/15/25 21:14 1 DROP Latanoprost 1 drop HS EACHEYE 01/15/25 22:00 01/15/25 21:14 1 DROP objective General appearance: Ill-appearing Respiratory:Fine bibasilar crackles, on nasal cannula Cardiovascular: Irregular rate and rhythm Abdomen: Soft, nondistended, nontender, bowel sounds present MSK: Normal range of motion but weak Neuro: Alert, no neurological deficits Psych: Appropriate mood and affect. laboratory and microbiology Laboratory Tests 01/15/25 05:39 Test 01/15/25 05:39 Range/Units Serum Glucose 133 H 74-106 mg/dL Assessment/Plan 1. Diarrhea 2' Diagnosis/Co-morbidities 2. Type 2 Diabetes 3. Generalized Weakness 4. Atrial Fibrillation with RVR 5. Right Lower Lobe Pulmonary Nodules on CT Plan -NS at 100 mL/h -DC vancomycin. Continue zosyn. -Clear liquid diet -Lovenox for DVT prophylaxis -Stool ova and parasites, C. difficile ordered, negative. Discontinue isolation -Blood cultures ordered, NGTD -Flu and COVID negative -Daily CBC and CMP -ID consulted due to persistent diarrhea -PT eval ordered. Anticipated discharge to SNF. -Insulin sliding scale for type 2 diabetes -Cardiology consulted for atrial fibrillation with RVR. Amiodarone drip started. Eliquis started. -Outpatient follow up for repeat imaging of chest to evaluate pulmonary nodules -Full code Plan discussed with: Patient Plan discussed with: Patient MIKE HOLM DO Jan 15, 2025 21:36
[2025-01-16 01:00] VITALS: BP 109/57; PULSE 70; RESP 17; TEMP 98.3; O2SAT 98
[2025-01-16 05:00] VITALS: BP 128/73; PULSE 120; RESP 17; TEMP 98.4; O2SAT 99
--- NOTE | 2025-01-16 06:53 | DVH ---
EXAM: XR Chest, 1 View CLINICAL INDICATION: Acute respiratory failure TECHNIQUE: Frontal view of the chest. COMPARISON: XY CHEST XRAY 1 VIEW on DOS: 01/14/25, XY CHEST PORTABLE on DOS: 01/12/25, XY CHEST XRAY 1 VIEW on DOS: 03/26/24, CHEST PORTABLE on DOS: 09/17/19 FINDINGS: LUNGS AND PLEURAL SPACES: Pulmonary venous congestion. No consolidation. No pneumothorax. HEART: Unremarkable. No cardiomegaly. MEDIASTINUM: Unremarkable. Normal mediastinal contour. BONES/JOINTS: Unremarkable. No acute fracture. OTHER FINDINGS: . IMPRESSION: Pulmonary venous congestion.
[2025-01-16 07:28] LABS: Basophils # (auto) 0 10 ^3/uL (0-0.2); Basophils % (auto) 0.7 % (0.0-2.0); Eosinophils # (auto) 0.1 10 ^3/uL (0-0.8); Eosinophils % (auto) 2.1 % (0.0-7.0); Hematocrit 43.7 % (36.0-46.0); Hemoglobin 14.7 g/dL (12.2-16.2); Lymphocytes # (auto) 1.1 10 ^3/uL (0.4-5.4); Mean Corpuscular Hemoglobin 31.5 pg (28.0-32.0); Mean Corpuscular Hgb Conc. 33.6 g/dL (32.0-36.0); Mean Corpuscular Volume 93.6 fL (80.0-100.0); Monocytes # (auto) 0.5 10 ^3/uL (0-1.3); Monocytes % (auto) 15.3 % (0.0-12.0); Neutrophils # (auto) 1.3 10 ^3/uL (1.6-8.6); Neutrophils % (auto) 43.9 % (37.0-80.0); Nucleated Red Blood Cells % 0.3 %; Platelet Count (auto) 138 10^3/uL (140-450); Red Blood Cells 4.66 10^6/uL (4.0-5.20); Red Cell Distribution Width 15.5 % (11.8-14.3)
--- NOTE | 2025-01-16 07:40 | DVHPN2 ---
Progress Note - Dictate Date Seen: Jan 16, 2025 Medical Necessity Reason Pt with a Central, PICC or Fol: No vital signs Vital Sign Date Time Temp Pulse Resp B/P (MAP) Pulse Ox O2 Delivery O2 Flow Rate FiO2 01/16/25 05:00 98.4 120 17 128/73 (91) 99 98.4 01/15/25 20:00 Nasal Cannula* 3 32 Total Intake and Output 01/15/25 01/15/25 01/16/25 15:00 23:00 07:00 Intake Total 620 ml 680 ml 500 ml Balance 620 ml 680 ml 500 ml medications Current Medications Medications Dose Ordered Sig/Cullen Route Start Time Stop Time Status Last Admin Dose Admin Diagnostic Test (Pha) 1 strip ACHS 01/13/25 11:30 01/16/25 06:18 1 STRIP Dextrose 50 ml UD PRN IV 01/13/25 11:15 Ondansetron HCl 4 mg Q4HP PRN IV 01/13/25 18:45 01/15/25 09:12 4 MG Morphine Sulfate 2 mg Q30M PRN IV 01/13/25 18:45 Hold Sodium Chloride 1,000 ml @ 100 mls/hr Q10H IV 01/13/25 18:45 01/15/25 10:21 100 MLS/HR Acetaminophen 325 mg Q4HP PRN PO 01/13/25 18:45 Acetaminophen/ Hydrocodone Bitart 1 tab Q4HP PRN PO 01/13/25 18:45 Hold Nitroglycerin 0.4 mg Q5MINP PRN SL 01/13/25 18:45 Aspirin 81 mg DAILY PO 01/14/25 10:00 01/15/25 09:06 81 MG Bupropion HCl 100 mg DAILY PO 01/14/25 10:00 01/15/25 09:06 100 MG Latanoprost 1 drop BID EACHEYE 01/14/25 10:00 Hold Losartan Potassium 50 mg DAILY PO 01/14/25 10:00 01/15/25 09:09 50 MG Metoprolol Tartrate 50 mg BID PO 01/14/25 10:00 01/15/25 09:10 50 MG Pantoprazole Sodium 40 mg DAILY PO 01/14/25 10:00 01/15/25 09:08 40 MG Atorvastatin Calcium 40 mg HS PO 01/14/25 22:00 01/15/25 21:15 40 MG Venlafaxine HCl 75 mg DAILY PO 01/14/25 10:00 01/15/25 09:07 75 MG Apixaban 5 mg BID PO 01/13/25 23:00 01/15/25 21:15 5 MG Insulin Human Regular ACHS SC 01/13/25 23:30 01/15/25 11:58 3 UNITS Piperacillin Sod/ Tazobactam Sod 100 ml @ 25 mls/hr Q8H IV 01/14/25 00:00 01/16/25 00:00 25 MLS/HR Amiodarone HCl 200 mg BID PO 01/15/25 10:00 01/15/25 21:14 200 MG Loperamide HCl 4 mg Q6HP PO 01/15/25 10:00 01/16/25 10:00 01/16/25 06:18 4 MG Dorzolamide HCl 1 drop BID EACHEYE 01/15/25 22:00 01/15/25 21:14 1 DROP Latanoprost 1 drop HS EACHEYE 01/15/25 22:00 01/15/25 21:14 1 DROP laboratory and microbiology Laboratory Tests 01/16/25 06:49 Test 01/16/25 06:49 Range/Units Serum Glucose Pending Assessment/Plan 79-year-old female presented with few days of significant nausea/vomiting. She mentioned she had 16 times of vomiting/diarrhea before presenting to the hospital. [place]. She has been admitted with gastroenteritis. There is question about infectious etiology for the presentation. While being managed, the patient was found to have atrial fibrillation with RVR and cardiology was involved. Her usual outpatient adzing and boring machine helper is Dr. Trotter. Does have baseline history of atrial fibrillation. Does take Eliquis as outpatient. Not in acute distress. Mucosa is pink and wet. No carotid bruit. No goiter. Lungs are clear to auscultation. Not using accessory muscles of breathing. Cardiac: Irregular and fast. Systolic murmur 2/6 in the apex is heard. Abdomen is soft. Bowel sound is a increased. There is no gross mass. Extremities do not reveal edema. 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 Echocardiogram of March 2024 revealed ejection fraction of 55% WBC: 12.7 - 7.6 - 5.4 - 2.9 - 3.0 Troponin (high sensitive): 5 - 6 Creatinine: 1.18-0.60 - 0.58 - 0.52 - 0.59 - 0.56 Potassium: 4.6 - 3.6 - 3.5 - 3.4 - 3.0 Chest x-ray revealed: IMPRESSION: 1. No acute disease. Repeat chest xry revealed: IMPRESSION: No acute cardiopulmonary disease. Repeat chest xry revealed: FINDINGS: LUNGS AND PLEURAL SPACES: Pulmonary venous congestion. No consolidation. No pneumothorax. HEART: Unremarkable. No cardiomegaly. MEDIASTINUM: Unremarkable. Normal mediastinal contour. BONES/JOINTS: Unremarkable. No acute fracture. OTHER FINDINGS: . IMPRESSION: Pulmonary venous congestion. CT of the abdomen and pelvis revealed: IMPRESSION: 1. No acute abdominal finding.Hepatomegaly 2. And hepatic steatosis. 3. Several right lower lobe pulmonary nodules of uncertain etiology and/or significance. Recommend comparison with prior exams if available and follow-up evaluation. EKG revealed atrial fibrillation with RVR Tele revealed atrial fibrillation, then NSR: PAF Echocardiogram revealed: Left ventricle: Mild concentric left ventricular hypertrophy was seen. LVEF was 57%. There was no gross wall motion abnormality. Right ventricle was normal-sized with normal systolic function. Both atria were normal-sized. Aortic valve: Aortic valve was trileaflet. There was no aortic stenosis. There was trivial aortic insufficiency. There was trivial mitral/tricuspid regurgitation. There was trivial pulmonary valve insufficiency. As there was no good tricuspid regurgitation jet, right ventricular systolic pressure could not be estimated. There was no echocardiographic evidence for pulmonary hypertension. IVC was normal-sized with normal respiratory variation. There was no pericardial effusion. Patient is a 79-year-old female who presented with abdominal pain/nausea and vomiting. Presentation is in favor of gastroenteritis. Needed fluid resuscitation on arrival. Is found to have atrial fibrillation with RVR. Does have baseline history of atrial fibrillation and is on Eliquis as outpatient. Her outside adzing and boring machine helper is Dr. Trotter. Later (on amiodarone), converted to sinus rhythm Gastroenteritis Atrial fibrillation with RVR Diabetes mellitus Hypertension Hyperlipidemia PAF Cardiac suggestion for management: Managed on telemetry Fluid resuscitation Follow-up electrolytes and kidney function tests and correct abnormalities Continue full anticoagulation (on Eliquis as outpatient) Oral Amiodarone (200 mg PO BID) Pulmonary evaluation for reported left lower lung nodularity is suggested (if primary team agrees) Evaluation and management of nausea/vomiting as per primary team/GI Further evaluation and management depends on the above and clinical course A total of 55 minutes was spent reviewing the patient record, examining the patient, making a diagnostic and therapeutic plan, discussing this plan with medical personnel, following up on diagnostic studies and following the patient for clinical stability excluding any and all procedures. At least 50% of this time was spent in direct, [id number] contact. Thank you for allowing me to participate in this patient's care. Further recommendations will depend on patient's clinical course. Please do not hesitate to contact me if you have any questions or concerns. This medical document was created using electronic medical record system with [employer] computerized dictation system. Although this document has been carefully reviewed, there may still be some phonetic and typographical errors. These areas are purely typographical due to the imperfection of the software programs, and do not reflect any compromise in the patient's medical care. Plan discussed with: Other (nurse) KASIA HUDDLESTON MD Jan 16, 2025 07:40
[2025-01-16 07:44] LABS: Alanine Aminotransferase 36 U/L (7-40); Albumin 3.8 g/dL (3.2-4.8); Alkaline Phosphatase 59 U/L (46-116); Anion Gap 11 (5-15); Aspartate Aminotransferase 37 U/L (13-40); BUN/Creatinine Ratio 10.7 (10.0-20.0); Carbon Dioxide 22 mmol/L (20-31); Sodium 142 mmol/L (136-145); Total Protein 6.2 g/dL (5.7-8.2)
[2025-01-16 07:45] LABS: Bilirubin, Total 0.7 mg/dL (0.2-1.0)
[2025-01-16 07:48] LABS: Blood Urea Nitrogen 6 mg/dL (9-23); Calcium 8.1 mg/dL (8.7-10.4); Chloride 109 mmol/L (98-107); Glucose 130 mg/dL (74-106)
[2025-01-16 08:00] VITALS: PULSE 66; O2SAT 99
[2025-01-16 09:00] VITALS: BP 145/53; PULSE 69; RESP 18; TEMP 97.8; O2SAT 99
[2025-01-16] MEDS: SODIUM CHL 0.9% 100 ML IV SCH (09:15)
[2025-01-16] MEDS: POTASSIUM CHL 20MEQ/50ML 50 ML IV ONE (10:34)
[2025-01-16] MEDS ORDERED: ASPI-543 PO (11:33)
[2025-01-16] MEDS ORDERED: AMIO200T13 PO (11:33)
[2025-01-16] MEDS ORDERED: ATOR20TA50 PO (11:33)
[2025-01-16] MEDS ORDERED: APIX5TAB PO (11:33)
[2025-01-16] MEDS ORDERED: CIP500T PO (11:42)
[2025-01-16] MEDS ORDERED: METR-344 PO (11:43)
[2025-01-16 13:00] VITALS: BP 120/53; PULSE 64; RESP 16; TEMP 98.2; O2SAT 99
[2025-01-16] MEDS: POTASSIUM EFFERVESENT TAB 25 MEQ PO ONE (13:24)
[2025-01-16] MEDS ORDERED: FUROSEMIDE 40 MG/4 ML VIAL IV ONE (17:00)
[2025-01-16] MEDS ORDERED: FURO1TAB31 PO (17:06)
[2025-01-16] MEDS ORDERED: POTA-36 PO (17:07)
[2025-01-16] MEDS ORDERED: POTA-180 PO (17:07)
--- NOTE | 2025-01-16 17:09 | DVHDS2 ---
Discharge Summary Date of Admission Jan 13, 2025 at 18:23 Date of Discharge: Jan 16, 2025 Labs/Diagnostic Data: Laboratory Results Test 01/16/25 13:20 01/16/25 06:49 01/13/25 15:01 01/13/25 13:04 POC Glucose 131 mg/dl (70-106) White Blood Count 3.0 10^3/uL (4.4-10.8) Red Blood Count 4.66 10^6/uL (4.0-5.20) Hemoglobin 14.7 g/dL (12.2-16.2) Hematocrit 43.7 % (36.0-46.0) Mean Corpuscular Volume 93.6 fL (80.0-100.0) Mean Corpuscular Hemoglobin 31.5 pg (28.0-32.0) Mean Corpuscular Hemoglobin Concent 33.6 g/dL (32.0-36.0) Red Cell Distribution Width 15.5 % (11.8-14.3) Platelet Count 138 10^3/uL (140-450) Mean Platelet Volume 7.4 fL (6.9-10.8) Neutrophils (%) (Auto) 43.9 % (37.0-80.0) Lymphocytes (%) (Auto) 38.0 % (10.0-50.0) Monocytes (%) (Auto) 15.3 % (0.0-12.0) Eosinophils (%) (Auto) 2.1 % (0.0-7.0) Basophils (%) (Auto) 0.7 % (0.0-2.0) Neutrophils # (Auto) 1.3 10 ^3/uL (1.6-8.6) Lymphocytes # (Auto) 1.1 10 ^3/uL (0.4-5.4) Monocytes # (Auto) 0.5 10 ^3/uL (0-1.3) Eosinophils # (Auto) 0.1 10 ^3/uL (0-0.8) Basophils # (Auto) 0 10 ^3/uL (0-0.2) Nucleated Red Blood Cells 0.3 % Sodium Level 142 mmol/L (136-145) Potassium Level 3.0 mmol/L (3.5-5.1) Chloride Level 109 mmol/L (98-107) Carbon Dioxide Level 22 mmol/L (20-31) Anion Gap 11 (5-15) Blood Urea Nitrogen 6 mg/dL (9-23) Creatinine 0.56 mg/dL (0.550-1.02) Glomerular Filtration Rate Calc 94 mL/min (>90) BUN/Creatinine Ratio 10.7 (10.0-20.0) Serum Glucose 130 mg/dL (74-106) Calcium Level 8.1 mg/dL (8.7-10.4) Total Bilirubin 0.7 mg/dL (0.2-1.0) Aspartate Amino Transferase (AST) 37 U/L (13-40) Alanine Aminotransferase (ALT) 36 U/L (7-40) Alkaline Phosphatase 59 U/L (46-116) Total Protein 6.2 g/dL (5.7-8.2) Albumin 3.8 g/dL (3.2-4.8) Random Vancomycin Level 7.6 ug/mL (5-10) Influenza Type A Antigen Negative (Negative) Influenza Type B Antigen Negative (Negative) SARS-CoV-2 Antigen (Rapid) Negative (NEGATIVE) Test 01/13/25 08:54 01/13/25 03:30 01/12/25 23:27 Urine Color Light-yellow (Yellow) Urine Clarity Clear (Clear) Urine pH 5.0 (5.0-9.0) Urine Specific [place] 1.026 (1.001-1.035) Urine Protein Trace (Negative) Urine Ketones Negative (Negative) Urine Blood Negative /uL (Negative) Urine Nitrite Negative (Negative) Urine Bilirubin Negative (Negative) Urine Urobilinogen Normal mg/dL (Negative) Urine Leukocyte Esterase Negative /uL (Negative) Urine RBC 2 /hpf (0 - 4) Urine Microscopic WBC 5 /HPF (0-5) Urine Squamous Epithelial Cells Few /hpf (<5) Urine Bacteria None seen /hpf (None Seen) Urine Yeast (Budding) Occasional /hpf (None Urine Glucose 3+ mg/dL (Normal) Lactic Acid Level 1.5 mmol/L (0.4-2.0) Troponin I High Sensitivity 6 ng/L (</=34) Other Laboratory Tests 01/16/25 06:49 Brief Hx & Hospital Course: Patient is a 79-year-old female with past medical history of atrial fibrillation on anticoagulation who presented with complaints of severe diarrhea. Patient probably had 16 episodes of diarrhea at home in the past 2 days prior to admission. Patient presented with vitals notable for hypotension with systolic blood pressure in the 90s to low 100s. She was aggressively fluid resuscitated and started on broad-spectrum antibiotics vancomycin and Zosyn. Stool studies were sent which were all largely negative. There was no C. difficile or other isolates noted. Blood cultures did not reveal any growth. Patient was kept on fluids and started on Imodium. Her diarrhea subsequently resolved. Of note, patient was noted to go into atrial fibrillation with RVR. Cardiology was consulted and started her on amiodarone and subsequently transitioned her to amiodarone p.o. Patient worked with physical therapy. She was offered to be discharged to SNF for further physical therapy but patient declined. Home health was set up with physical therapy. Patient was discharged on ciprofloxacin and Flagyl. Patient is to continue taking Imodium if diarrhea recurs. Vitals were within normal limits. Patient did not have leukocytosis prior to discharge. Renal function within normal limits. Flu and COVID was negative. Patient was noted to require 3L oxygen and chest-xray was consistent with pulmonary vascular congestion. Patient was prescribed lasix 40mg PO daily with KCL for 3 days to improve pulmonary congestion. Home oxygen ordered. Patient was noted to have on CT imaging a right lower lobe pulmonary nodules specifically a 0.5 cm pleural-based posterior lateral right lower lobe nodule, 0.5cm posteromedial right lower lobe nodule and 1.2 cm pleural based lateral right lower lobe nodule. Patient is to follow up with pulmonary and have repeat imaging. Patient to follow-up with her PCP. Patient given ER return precautions. Condition at Discharge: Good Final Diagnosis/Problems List Diarrhea Secondary Diagnosis: Atrial Fibrillation with RVR Septic Shock-Resolved Acute Respiratory Failure Discharge Disposition: Home with Health Services Discharge Instruct/Medications Diet: Cardiac 2g Na,low cholest Activity: No Restrictions, As Tolerated Follow Up/Referral: Follow up with infectious disease. Medications: Ciprofloxacin and Flagyl Discharge Statement: "Patient was advised to return to the ER or call 911 if any headaches, dizziness, shortness of breath, chest pain, abdominal pain, bleeding, fevers, or worsening of medical condition. Patient was counseled about treatment plan, medications, possible side effects, patientverbalized understanding. All questions were answered to the best of my ability. This discharge took greater then 30 minutes in planning, reviewing documentation, counseling the patient, and discussing with other team members." ASSESSMENT ASSESSMENT Assessment Diarrhea MIKE HOLM DO Jan 16, 2025 17:09
--- NOTE | 2025-01-16 20:40 | DVHINCON2 ---
"Date of service: Jan 14, 2025 Family History: History of carcinoma of pancreas G8 MOTHER Hypertension G8 MOTHER Prostate carcinoma G8 FATHER Allergies: Coded Allergies: Iodine (Verified Allergy, Severe, 09/17/19) Azithromycin (Verified Allergy, Mild, 09/17/19) ITCHING Metoprolol (Verified Allergy, Mild, 11/22/16) PATIENT REPORTS THAT SHE IS ALLERGIC TO IV METOPROLOL. CAUSES ITCHING. BUT IS ABLE TO TOLERATE PO METOPROLOL WITH NO ADVERSE REACTIONS. Morphine (Verified Allergy, Unknown, 09/17/19) Neomycin (Verified Allergy, Unknown, 09/17/19) Home Meds Active Scripts Potassium Chloride (Potassium Chloride ER) 20 Meq Tab, 20 MEQ PO DAILY for 3 Days, #3 TAB 0 Refills Prov:LIDIAMIKE ABARCA 01/16/25 Potassium Chloride (POTASSIUM CHLORIDE CR) 10 Meq Tb, 1 TAB PO DAILY, #90 TAB 3 Refills Prov:LIDIAMIKE ABARCA 01/16/25 Furosemide (Lasix) 40 Mg Tab, 40 MG PO DAILY for 3 Days, #3 TAB 0 Refills Take for pulmonary congestion. Prov:MIKE HOLM 01/16/25 Metronidazole (Flagyl) 500 Mg Tab, 500 MG PO TID for 7 Days, #21 TAB 0 Refills Prov:LIDIAMIKE ABARCA 01/16/25 Ciprofloxacin Hydrochloride (Ciprofloxacin HCl) 500 Mg Tab, 500 MG PO BID for 7 Days, #14 TAB 0 Refills Prov:LIDIAMIKE ABARCA DO 01/16/25 Atorvastatin Calcium (ATORVASTATIN CALCIUM) 20 Mg Tab, 40 MG PO HS for 30 Days, #60 TAB 1 Refill Prov:MIKE HOLM 01/16/25 Aspirin (Aspir-Low) 81 Mg Tab, 81 MG PO DAILY for 30 Days, #30 TAB 1 Refill Prov:MIKE HOLM 01/16/25 Apixaban Base (ELIQUIS) 5 Mg Tab, 5 MG PO BID for 30 Days, #60 TAB 1 Refill Prov:LIDIAMIKE ABARCA 01/16/25 Amiodarone HCl (Amiodarone HCl) 200 Mg Tab, 200 MG PO BID for 30 Days, #60 TAB 1 Refill Prov:MIKE HOLM 3/26/25 Atorvastatin Calcium (ATORVASTATIN CALCIUM) 40 Mg Tab, 40 MG PO DAILY for 30 Days, #30 TAB 0 Refills Prov:MIKE HOLM DO 03/27/24 Losartan Potassium (Losartan Potassium) 50 Mg Tab, 50 MG PO DAILY for 30 Days, #30 TAB 0 Refills Prov:MIKE HOLM DO 03/27/24 Reported Medications Dorzolamide-Timolol (Dorzolamide Hcl/Timolol M) 1 Ml Cathy, 1 DROP EACHEYE BID, #10 ML 6 Refills 01/15/25 Semaglutide (Ozempic) 2 Mg/3 Ml Inj, 0.5 MG SC QWEEKLY, INJ 05/05/24 Latanoprost (LATANOPROST) 0.005 % Cathy, 1 DROP EACHEYE QPM, #2.5 ML 6 Refills 05/05/24 Venlafaxine Hydrochloride (Venlafaxine Hcl) 75 Mg Tab, 75 MG PO DAILY, TAB 05/05/24 Dapagliflozin Propanediol (Farxiga) 10 Mg Tab, 10 MG PO DAILY, TAB 05/05/24 Bupropion Hcl (Bupropion Hcl) 100 Mg Tab, 100 MG PO DAILY for 30 Days, MG 05/05/24 Metformin Hydrochloride (Metformin Hcl) 850 Mg Tab, 850 MG PO BID for 30 Days, MG 05/05/24 Pantoprazole Sodium Sesquihydr (Protonix) 40 Mg Tab, 40 MG PO DAILY, #30 TAB 05/05/24 Metoprolol Tartrate (Metoprolol Tartrate) 50 Mg Tab, 50 MG PO BID for 30 Days, MG 03/27/24 Discontinued Reported Medications Aspirin (Aspir-Low) 81 Mg Tab, 81 MG PO DAILY for 30 Days, MG 05/05/24 Amiodarone Hcl (Amiodarone Hcl) 200 Mg Tab, 200 MG PO DAILY for 30 Days 05/05/24 Hydrochlorothiazide (Hydrochlorothiazide) 12.5 Mg Cap, 12.5 MG PO DAILY for 30 Days, MG 05/05/24 Apixaban Base (ELIQUIS) 5 Mg Tab, 5 MG PO BID, TAB 03/27/24 Current Medications Current Medications Medications (Trade) Dose Ordered Sig/Cullen Route PRN Reason Start Time Stop Time Status Last Admin Dorzolamide HCl (Trusopt 2% Opthalmic) 1 drop BID EACHEYE 01/15/25 22:00 01/16/25 17:33 DC 01/16/25 10:35 Latanoprost (Xalatan) 1 drop HS EACHEYE 01/15/25 22:00 01/16/25 17:33 DC 01/15/25 21:14 Sodium Chloride 100 ml @ 50 mls/hr Q2H IV 01/16/25 09:15 01/16/25 15:14 DC Vital Signs Vital Signs Date Time Temp Pulse Resp B/P (MAP) Pulse Ox O2 Delivery O2 Flow Rate FiO2 01/16/25 13:00 98.2 64 16 120/53 (75) 99 98.2 01/16/25 08:00 Nasal Cannula* 3 32 Labs/Diagnostic Data Labs Test 01/16/25 13:20 01/16/25 06:49 01/13/25 15:01 01/13/25 13:04 Range/Units POC Glucose 131 H 70-106 mg/dl White Blood Count 3.0 L 4.4-10.8 10^3/uL Red Blood Count 4.66 4.0-5.20 10^6/uL Hemoglobin 14.7 12.2-16.2 g/dL Hematocrit 43.7 36.0-46.0 % Mean Corpuscular Volume 93.6 80.0-100.0 fL Mean Corpuscular Hemoglobin 31.5 28.0-32.0 pg Mean Corpuscular Hemoglobin Concent 33.6 32.0-36.0 g/dL Red Cell Distribution Width 15.5 H 11.8-14.3 % Platelet Count 138 L 140-450 10^3/uL Mean Platelet Volume 7.4 6.9-10.8 fL Neutrophils (%) (Auto) 43.9 37.0-80.0 % Lymphocytes (%) (Auto) 38.0 10.0-50.0 % Monocytes (%) (Auto) 15.3 H 0.0-12.0 % Eosinophils (%) (Auto) 2.1 0.0-7.0 % Basophils (%) (Auto) 0.7 0.0-2.0 % Neutrophils # (Auto) 1.3 L 1.6-8.6 10 ^3/uL Lymphocytes # (Auto) 1.1 0.4-5.4 10 ^3/uL Monocytes # (Auto) 0.5 0-1.3 10 ^3/uL Eosinophils # (Auto) 0.1 0-0.8 10 ^3/uL Basophils # (Auto) 0 0-0.2 10 ^3/uL Nucleated Red Blood Cells 0.3 % Sodium Level 142 136-145 mmol/L Potassium Level 3.0 L 3.5-5.1 mmol/L Chloride Level 109 H 98-107 mmol/L Carbon Dioxide Level 22 20-31 mmol/L Anion Gap 11 5-15 Blood Urea Nitrogen 6 L 9-23 mg/dL Creatinine 0.56 0.550-1.02 mg/dL Glomerular Filtration Rate Calc 94 >90 mL/min BUN/Creatinine Ratio 10.7 10.0-20.0 Serum Glucose 130 H 74-106 mg/dL Calcium Level 8.1 L 8.7-10.4 mg/dL Total Bilirubin 0.7 0.2-1.0 mg/dL Aspartate Amino Transferase (AST) 37 13-40 U/L Alanine Aminotransferase (ALT) 36 7-40 U/L Alkaline Phosphatase 59 46-116 U/L Total Protein 6.2 5.7-8.2 g/dL Albumin 3.8 3.2-4.8 g/dL Random Vancomycin Level 7.6 5-10 ug/mL Influenza Type A Antigen Negative Negative Influenza Type B Antigen Negative Negative SARS-CoV-2 Antigen (Rapid) Negative NEGATIVE Test 01/13/25 08:54 01/13/25 03:30 01/12/25 23:27 Range/Units Urine Color Light-yellow Yellow Urine Clarity Clear Clear Urine pH 5.0 5.0-9.0 Urine Specific [place] 1.026 1.001-1.035 Urine Protein Trace H Negative Urine Ketones Negative Negative Urine Blood Negative Negative /uL Urine Nitrite Negative Negative Urine Bilirubin Negative Negative Urine Urobilinogen Normal Negative mg/dL Urine Leukocyte Esterase Negative Negative /uL Urine RBC 2 0 - 4 /hpf Urine Microscopic WBC 5 0-5 /HPF Urine Squamous Epithelial Cells Few <5 /hpf Urine Bacteria None seen None Seen /hpf Urine Yeast (Budding) Occasional None Seen /hpf Urine Glucose 3+ H Normal mg/dL Lactic Acid Level 1.5 0.4-2.0 mmol/L Troponin I High Sensitivity 6 </=34 ng/L Microbiology Date/Time Source Procedure Growth Status 01/14/25 00:25 Nose MRSA Screen - Final Complete 01/13/25 15:21 Stool Stool Culture - Final Complete 01/13/25 15:21 Stool Shiga Toxin I & II - Final Complete 01/13/25 15:21 Stool Clostridium difficile Toxin Assay - Final Complete 01/13/25 01:35 Blood Blood Culture - Preliminary NO GROWTH AFTER 72 HOURS OF INCUBATION. Resulted Problems(with codes): (1) Acute diarrhea (2) Chronic atrial fibrillation (3) History of asthma (4) Hyperglycemia due to type 2 diabetes mellitus Plan/Recommendation ASSESSMENT AND PLAN: ID Problem List: - Acute diarrhea (likely traveler's diarrhea) - Hypotension (resolved) - Sepsis - Leukocytosis (resolved) - Hepatic steatosis - Pulmonary nodules - Atrial fibrillation Assessment This is a female patient with a past medical history of atrial fibrillation, who presents with acute diarrhea following recent travel to [place]. Patient reports intractable diarrhea ongoing for the last two days since returning from [place]. Denies nausea, vomiting, weakness, abdominal pain, or blood in the stool. Denies eating at buffets and denies any sick contacts. On admission, the patient was hypotensive and responded to fluids. WBC count was initially elevated at 12.7, which has since improved to 7.6 and then to 5.4. CT abdomen and pelvis showed hepatomegaly, hepatic steatosis, and severe right lower lobe pulmonary nodules of uncertain etiology or significance. Laboratory studies are significant for AST 42, ALT 59, K? 3.6, total bilirubin 0.8, lactic acid 1.5. Urinalysis with occasional yeast, few squamous cells, no pyuria. Stool cultures are pending. Negative for C. difficile, Campylobacter, Salmonella, Shigella, and E. coli. Blood cultures show no growth to date. Patient was started on vancomycin and Zosyn. Diarrhea is being monitored. Patient is currently afebrile; vitals are stable. Plan: - Continue vancomycin and Zosyn for now. - Monitor diarrhea; follow up on stool culture results. - Consider starting ciprofloxacin if diarrhea fails to completely resolve prior to discharge or if stool culture isolates a sensitive organism. - Continue fluid resuscitation and electrolyte repletion in the setting of ongoing diarrhea. - Monitor liver enzymes; if they continue to uptrend, recommend testing for hepatitis A and HIV. - Defer management of atrial fibrillation to cardiology service. - Follow up on blood cultures. Isolation Precautions: standard Assessment and plan was discussed with the patient as written above Plan is subject to change pending incorporation of new incoming information/diagnostics. Updates may be added as addendum at the bottom (OR TOP) of this note Thank you for interesting consult. ID will continue to follow. Please contact Infectious disease for any questions or concerns. Tressa Mendez M.D. [facility] Ph: ? History: The patient's chart and medications were reviewed in detail and the patient was seen and examined. History obtained from: patient Miss Karen Tim is a female with a past medical history of atrial fibrillation, who presents with intractable diarrhea ongoing for the last two days. She recently returned from a trip to [place] and since then has been having multiple episodes of diarrhea. Denies nausea, vomiting, weakness, abdominal pain, or blood in the stool. Denies eating at buffets and denies any sick contacts. She was initially hypotensive and responded to fluids. Continues to have episodes of diarrhea in the hospital. Started on broad-spectrum antibiotics (vancomycin and Zosyn). Review of Systems: A complete 10 system review of systems was completed and negative except as noted in the HPI or here. ROS: - CONSTITUTIONAL: Denies weight loss, fever, and chills. - HEENT: Denies changes in vision and hearing. - RESPIRATORY: Denies shortness of breath and cough. - CV: Denies palpitations and chest pain. - GI: Reports diarrhea. Denies nausea, vomiting, abdominal pain, and blood in the stool. - : Denies dysuria and urinary frequency. - MSK: Denies myalgia and joint pain. - SKIN: Denies rash and pruritus. - NEUROLOGICAL: Denies headache and syncope. - PSYCHIATRIC: Denies recent changes in mood. Denies anxiety and depression. Past Medical History: Diagnosis | Date - | Atrial fibrillation | Past Surgical History: History reviewed. No pertinent surgical history. Home Medications: Not provided. Allergies: No Known Allergies Family History: Not provided. Social History: Social History - Recent travel to [place]. Objective: Vital Signs on Arrival: - Temp: 98.5 F - BP: 118/46 mmHg - Pulse: 94 bpm - Resp: 18 breaths/min - SpO?: 93% on room air Most Recent Vital Signs: Not provided. Admission Weight: Not provided. Physical Exam: - General: NAD - Neck: Supple. No masses. - HEENT: PERRL. Normal lids and conjunctiva. Moist mucous membranes. Oropharynx without lesions, exudates or excessive erythema. Normal appearance of the external aspects of the nose and ears. - Heart: Regular rhythm, normal rate. No murmur. No lower extremity edema. - Lungs: Normal respiratory effort. Clear to auscultation bilaterally. No wheezes. No crackles. - Abdomen: Soft. Non-tender. Non-distended. No masses or abdominal hernia. Active bowel sounds. - Msk: No digital cyanosis. Normal strength and tone in all 4 limbs - Skin: Warm and dry, no rashes. - Neuro: Alert. No facial droop or slurred speech. Extra-ocular movements intact. Sensation intact to soft touch in all 4 limbs. - Psych: Appropriate mood. Full affect. Oriented to person, place, time, and situation. Lines: Active Lines Not provided. Diagnostic Studies: Available diagnostic studies were reviewed personally. Significant relevant results and findings are outlined below or addressed in the Assessment and Plan above. Pertinent Labs: - WBC count: Initially 12.7 ? improved to 7.6 ? then to 5.4 H/H: 14.1 - Platelet count: 156 AST: 42 ALT: 59 K?: 3.6 - Total bilirubin: 0.8 - Lactic acid: 1.5 - Urinalysis: Occasional yeast, few squamous cells, no pyuria - Stool cultures: Pending. Negative for C. difficile, Campylobacter, Salmonella, Shigella, and E. coli - Blood cultures: No growth to date Pertinent Imaging: CT Abdomen and Pelvis: IMPRESSION: 1. No acute abdominal findings. 2. Hepatomegaly. 3. Hepatic steatosis. 4. Severe right lower lobe pulmonary nodules of uncertain etiology or significance. Chest X-ray: IMPRESSION: 1. No cardiopulmonary disease. Plan discussed with: Patient TRESSA MENDEZ MD Jan 16, 2025 20:40"
--- NOTE | 2025-01-16 20:50 | DVHPN2 ---
Consult Progress Note Date Seen: Jan 15, 2025 Objective vital signs Vital Sign Date Time Temp Pulse Resp B/P (MAP) Pulse Ox O2 Delivery O2 Flow Rate FiO2 01/16/25 13:00 98.2 64 16 120/53 (75) 99 98.2 01/16/25 08:00 Nasal Cannula* 3 32 Total Intake and Output 01/15/25 01/15/25 01/16/25 15:00 23:00 07:00 Intake Total 620 ml 680 ml 500 ml Balance 620 ml 680 ml 500 ml laboratory and microbiology Laboratory Tests 01/16/25 06:49 Test 01/16/25 06:49 Range/Units Serum Glucose 130 H 74-106 mg/dL Dietary Evaluation Review Comments: 1. Currently day 3 of Clear Liquid diet, advance to Low Fiber/Residue while experiencing diarrhea 2. May trial soluble fiber supplement such as Metamucil or equivalent BID 3. Would add Ensure Clear TID while on current diet to optimize oral nutrition (240 kcal, 8 gm pro/carton) Expected Outcomes/Goals: Diet progression, improved energy intake. TRESSA VASQUEZ MD Jan 16, 2025 20:50
== END 2025-01-16 17:15 | DRG 871 ==
LOC: ER 22:32 → OVERFLOW 01-13 18:23 → ER 01-13 18:26 → EAST 01-13 22:08 → TELE-EAST 01-13 22:27
PROVIDERS: ADMIT Student in an Organized Health Care Education/Training Program; ATTEND Student in an Organized Health Care Education/Training Program
DX: A41.9 Sepsis, unspecified organism (principal); J96.00 Acute respiratory failure, unspecified whether with hypoxia or hypercapnia; R65.21 Severe sepsis with septic shock; N17.0 Acute kidney failure with tubular necrosis; A09 Infectious gastroenteritis and colitis, unspecified; E11.9 Type 2 diabetes mellitus without complications; I50.9 Heart failure, unspecified; I48.0 Paroxysmal atrial fibrillation; I25.10 Atherosclerotic heart disease of native coronary artery without angina pectoris; I11.0 Hypertensive heart disease with heart failure; E78.5 Hyperlipidemia, unspecified; K76.0 Fatty (change of) liver, not elsewhere classified; J45.909 Unspecified asthma, uncomplicated; Z85.3 Personal history of malignant neoplasm of breast; Z82.49 Family history of ischemic heart disease and other diseases of the circulatory system; Z79.899 Other long term (current) drug therapy; Z79.84 Long term (current) use of oral hypoglycemic drugs; Z79.01 Long term (current) use of anticoagulants; Z90.49 Acquired absence of other specified parts of digestive tract; Z79.82 Long term (current) use of aspirin; Z88.1 Allergy status to other antibiotic agents; Z88.5 Allergy status to narcotic agent; Z88.8 Allergy status to other drugs, medicaments and biological substances
CPT/HCPCS: 36415; 71045; 74176; 80048; 80053; 80202; 81001; 82565; 82962; 83605; 84484; 85025; 87040; 87045; 87081; 87177; 87426; 87427; 87493; 87804; 93005; 93306; 96361; 96374; 96375; 97116; 97163; 97530; 99291; G0378; J1815; J2405; J2543; J3490